=== PATIENT | female | born 1935 | race Two or more races ===

== ENCOUNTER 2025-01-26 17:48 | Inpatient (IN) | payer OTHER, MEDICAID ==
[~2025-01-26] VITALS: Ht 157.5 cm; Wt 65.0 kg
--- NOTE | 2025-01-26 18:05 | ED.PDOC ---
HPI Comments 89-year-old female with a history of AFib, hypothyroid, anemia, hypertension and arthritis brought in by son for evaluation of chest pain. Patient son states he noticed the patient's tongue was blue this morning, so he contacted [facility] hot[facility] and was advised to come to the ER. On my evaluation, patient is gesturing to the right parasternal area to localize the chest pain. She denies fever, cough, shortness of breath, nausea, vomiting, diaphoresis or edema. EKG at triage showed ST-elevation in the lateral leads with reciprocal changes. Code STEMI was activated. Case was discussed with Dr. Rowley, who will be taking the patient to the mill laborer. Chief Complaint: Chest Pain Time Seen by MD: 18:02 Reviewed Notes: Nurses Notes, Medications, Allergies Allergies: Coded Allergies: NO KNOWN ALLERGIES (Unverified , 01/26/25) Information Source: Patient, Emergency Med Personnel Mode of Arrival: EMS Severity: Moderate Timing: Weeks Duration: Since onset Prehospital treatment: None Location: Chest (R) Radiation: No Radiation Onset: At Rest Cardiac Risk Factors: None PE Risk Factors: None History of: None Modifying Factors: Nothing Associated Signs and Symptoms: None Past Medical History PAST MEDICAL HISTORY: AFIB, HTN, Thyroid Past Medical History (Other): Arthritis Surgical History (Other): Noncontributory FREIGHT SORTER History: No Pertinent FREIGHT SORTER History Family History Family History: Unknown Social History Smoker: Non-Smoker Alcohol: Denies ETOH Use Drugs: Denies Drug Use Lives In: Home Constitutional: denies: chills, diaphoresis, fatigue, fever, malaise, sweats, weakness, others EENTM: denies: blurred vision, double vision, ear bleeding, ear discharge, ear drainage, ear pain, ear ringing, eye pain, eye redness, hearing loss, mouth pain, mouth swelling, nasal discharge, nose bleeding, nose congestion, nose pain, photophobia, tearing, throat pain, throat swelling, voice changes, others Respiratory: denies: cough, hemoptysis, orthopnea, SOB at rest, shortness of breath, SOB with excertion, stridor, wheezing, others Cardiovascular: reports: chest pain; denies: dizzy spells, diaphoresis, Dyspnea on exertion, edema, irregular heart beat, left arm pain, lightheadedness, palpitations, PND, syncope, others Gastrointestinal: denies: abdomen distended, abdominal pain, blood streaked bowels, constipated, diarrhea, dysphagia, difficulty swallowing, hematemesis, melena, nausea, poor appetite, poor fluid intake, rectal bleeding, rectal pain, vomiting, others Genitourinary: denies: abnormal vagina bleeding, burning, dyspareunia, dysuria, flank pain, frequency, hematuria, incontinence, pain, , vagina discharge, urgency, others Neurological: denies: dizziness, fainting, headache, left sided numbness, left sided weakness, numbness, paresthesia, pre-existing deficit, right sided numbness, right sided weakness, seizure, speech problems, tingling, tremors, weakness, others Musculoskeletal: denies: back pain, gout, joint pain, joint swelling, muscle pain, muscle stiffness, neck pain, others Integumetry: denies: bruises, change in color, change in hair/nails, dryness, laceration, lesions, lumps, rash, wounds, others Allergic/Immunocompromised: denies: Difficulty Healing, Frequent Infections, Hives, Itching, others Hematologic/Lymphatic: denies: anemia, blood clots, easy bleeding, easy bruising, swollen glands, others Endocrine: denies: excessive hunger, excessive sweating, excessive thirst, excessive urination, flushing, intolerance to cold, intolerance to heat, unexplained weight gain, unexplained weight loss, others Psychiatric: denies: anxiety, bipolar disorder, depression, hopeless, panic disorder, schizophrenia, sleepless, suicidal, others All Other Systems: Reviewed and Negative (Comprehensive systems review obtained and negative except for what is stated in the HPI.) Physical Exam General Appearance: No Apparent Distress HEENT: Other (Pupils and face symmetric. Moist mucous membranes. Tongue appears mildly cyanotic.) Neck: Full Range of Motion, Normal Inspection Respiratory: Lungs Clear, No Accessory Muscle Use, No Respiratory Distress, Normal Breath Sounds Cardiovascular: No Edema, No JVD, Regular Rate/Rhythm Breast Exam: Deferred Gastrointestinal: Non Tender, Soft Genitalia: Deferred Pelvic: Deferred Rectal: Deferred Extremities: Normal inspection, Normal range of motion, Non-tender, No pedal edema Neurologic: Alert (Oriented x4), Other (Ambulatory) Cerebellar Function: NOT DONE Reflexes: NOT DONE Skin: Dry, Normal Color, Warm Lymphatic: NOT DONE EKG EKG : Comments Sinus rhythm, rate 82, normal intervals, normal axis, normal QRS, upsloping ST elevation in leads 1, aVL with T-wave inversion and ST-depression in the inferior leads and V3 through V6 Was a procedure done? Was a procedure done?: No CP Differential Dx Differential Diagnosis: Angina, NE, Pulmonary Embolus, Other (Arrhythmia) Differential Diagnosis: Chest Wall Pain, Esophageal reflux/spasm, Gastritis, Pericarditis X-Ray, Labs, Meds, VS Vital Signs Date Time Temp Pulse Resp B/P (MAP) Pulse Ox O2 Delivery O2 Flow Rate FiO2 01/26/25 18:15 154/80 01/26/25 18:07 Room Air* 0 21 01/26/25 17:57 98.0 75 18 154/68 99 98.0 01/26/25 17:53 82 Lab Test 01/26/25 18:12 Range/Units White Blood Count 6.5 4.4-10.8 10^3/uL Red Blood Count 3.95 L 4.0-5.20 10^6/uL Hemoglobin 12.1 L 12.2-16.2 g/dL Hematocrit 36.1 36.0-46.0 % Mean Corpuscular Volume 91.3 80.0-100.0 fL Mean Corpuscular Hemoglobin 30.6 28.0-32.0 pg Mean Corpuscular Hemoglobin Concent 33.6 32.0-36.0 g/dL Red Cell Distribution Width 15.8 H 11.8-14.3 % Platelet Count 231 140-450 10^3/uL Mean Platelet Volume 7.5 6.9-10.8 fL Neutrophils (%) (Auto) 61.1 37.0-80.0 % Lymphocytes (%) (Auto) 29.0 10.0-50.0 % Monocytes (%) (Auto) 6.9 0.0-12.0 % Eosinophils (%) (Auto) 2.6 0.0-7.0 % Basophils (%) (Auto) 0.4 0.0-2.0 % Neutrophils # (Auto) 4.0 1.6-8.6 10 ^3/uL Lymphocytes # (Auto) 1.9 0.4-5.4 10 ^3/uL Monocytes # (Auto) 0.5 0-1.3 10 ^3/uL Eosinophils # (Auto) 0.2 0-0.8 10 ^3/uL Basophils # (Auto) 0 0-0.2 10 ^3/uL Nucleated Red Blood Cells 0.1 % Prothrombin Time 10.4 9.3-11.8 sec Prothrombin Time INR 0.98 0.9-1.15 Activated Partial Thromboplast Time 25.2 24.5-34.5 SEC Sodium Level 139 136-145 mmol/L Potassium Level 4.2 3.5-5.1 mmol/L Chloride Level 106 98-107 mmol/L Carbon Dioxide Level 25 20-31 mmol/L Anion Gap 8 5-15 Blood Urea Nitrogen 14 9-23 mg/dL Creatinine 0.85 0.550-1.02 mg/dL Glomerular Filtration Rate Calc 66 >90 mL/min BUN/Creatinine Ratio 16.5 10.0-20.0 Serum Glucose 150 H 74-106 mg/dL Hemoglobin A1c 6.3 H <5.7 % A1C Lactic Acid Level 1.6 0.4-2.0 mmol/L Calcium Level 9.2 8.7-10.4 mg/dL Magnesium Level 2.2 1.6-2.6 mg/dL Total Bilirubin 0.6 0.2-1.0 mg/dL Aspartate Amino Transferase (AST) 21 13-40 U/L Alanine Aminotransferase (ALT) 19 7-40 U/L Alkaline Phosphatase 91 46-116 U/L Troponin I High Sensitivity 18 </=34 ng/L B-Type Natriuretic Peptide 54.95 0-100 pg/mL Total Protein 6.8 5.7-8.2 g/dL Albumin 3.9 3.2-4.8 g/dL Vitamin B12 Level 1958 H 211-911 pg/mL Vitamin D 25-Hydroxy 98.3 30.0-100 ng/mL Thyroid Stimulating Hormone (TSH) 0.22 L 0.55-4.78 uIU/mL Current Medications Medications (Trade) Dose Ordered Sig/Monica Route Start Time Stop Time Status Last Admin Aspirin 325 mg ONCE ONCE PO 01/26/25 18:15 01/26/25 18:16 DC 01/26/25 18:15 Nitroglycerin (Nitro-Bid) 1 pkg ONCE ONCE TD 01/26/25 18:15 01/26/25 18:16 DC 01/26/25 18:15 PROCEDURE(s): CXRP - CHEST PORTABLE REASON: cp ORDER NUMBER(s): [id number], ACCESSION NUMBER(s): [id number] CHEST RADIOGRAPH Indication: cp Technique: XY CHEST PORTABLE COMPARISON: None FINDINGS: The cardiac silhouette is enlarged. The lungs demonstrate bilateral patchy airspace opacities. The pulmonary vasculature is prominent. Moderate left and small right pleural effusions. Aortic atherosclerotic disease. There is no pneumothorax. IMPRESSION: As above X-Ray, Labs, Meds, VS Comment 89-year-old female with a history of hypertension, AFib, thyroid disease and arthritis brought in by son for evaluation of blue tongue discoloration and right-sided chest pain Vitals remarkable for BP 154/68 Exam remarkable for mildly cyanotic appearing tongue Rhythm strip independently interpreted by me: Sinus rhythm, rate eighty-two, no ectopy. Chest x-ray The cardiac silhouette is enlarged. The lungs demonstrate bilateral patchy airspace opacities. The pulmonary vasculature is prominent. Moderate left and small right pleural effusions. Aortic atherosclerotic disease. There is no pneumothorax. CBC, CMP and troponins unremarkable Case discussed with Dr. Rowley, who agreed EKG findings are consistent with STEMI. Code STEMI was activated. Patient treated with the following in the ED: Aspirin 325 mg p.o., nitro bid 1/2 inch to chest wall On re-evaluation, patient is resting comfortably with stable vitals. Plan is to admit the patient for ongoing cardiology evaluation. Case discussed with Roberto JIMENEZ RP who provided authorization for us to admit the patient here. Authorization [id number] Time of 1ST Reevaluation: 18:32 Reevaluation 1ST: Unchanged Patient Education/Counseling: Diagnosis, Treatment Family Education/Counseling: No Family Present SEPSIS Sepsis Screen Physician Orders Chest Portable (01/26/25 18:07) Heplock Iv (01/26/25 18:07) Photographer Scientific (01/26/25 18:07) Blood Pressure (01/26/25 18:07) Oxygen (01/26/25 18:07) Electrocardigram (01/26/25 18:07) Electrocardigram (01/26/25 19:07) Electrocardigram (01/26/25 21:07) Electrocardigram (01/26/25 18:05) Oxygen Per Hour (01/26/25 18:05) Photographer Scientific (01/26/25 18:05) Pulse Oximeter Check (01/26/25 18:05) Heplock Iv (01/26/25 18:05) Electrocardigram (01/26/25 19:05) Electrocardigram (01/26/25 21:05) Troponin-I Hs (01/26/25 21:05) Allergies (01/26/25 18:28) Complete Blood Count (01/27/25 04:00) Comprehensive Metabolic Panel (01/27/25 04:00) Npo (Nothing By Mouth) Diet (01/26/25 Dinner) Condition: Unstable (01/26/25 18:28) Acetaminophen Tablet (Tylenol Tablet) (01/26/25 18:30) Cl Left Heart Cath (01/26/25 18:29) Vital Signs Date Time Temp Pulse Resp B/P (MAP) Pulse Ox O2 Delivery O2 Flow Rate FiO2 01/26/25 18:15 154/80 01/26/25 18:07 Room Air* 0 21 01/26/25 17:57 98.0 75 18 154/68 99 98.0 01/26/25 17:53 82 Laboratory Tests Test 01/26/25 18:12 Lactic Acid Level 1.6 mmol/L (0.4-2.0) White Blood Count 6.5 10^3/uL (4.4-10.8) Medications Medications Dose Ordered Sig/Monica Route Start Time Stop Time Status Last Admin Dose Admin Aspirin 325 mg ONCE ONCE PO 01/26/25 18:15 01/26/25 18:16 DC 01/26/25 18:15 Iodixanol 64,000 mg STK-MED ONCE IV 01/26/25 18:21 01/26/25 18:18 DC 01/26/25 18:21 Nitroglycerin 1 pkg ONCE ONCE TD 01/26/25 18:15 01/26/25 18:16 DC 01/26/25 18:15 Departure 1 Departure Time of Disposition: 18:18 Impression: Primary Impression: ST elevation NE (STEMI) Disposition: 09 ADMITTED INPATIENT Admit to: [facility] Condition: Guarded Critical Care Note Critical Care Time?: Yes (35 min-critical care time only) Critical care comment: Critical care time including multiple bedside re-evaluations, review of lab and imaging studies, and discussion of the case with the admitting and consulting providers. Patient is high risk for hemodynamic decompensation. Stability Stability form required: No Heart Score Heart Score: Heart Score Response (Comments) Value History Slightly Suspicious [address]-Deviation 2 Age >65 2 Risk Factors 1 or 2 risk factors 1 Troponin Normal limit 0 Total 5 I personally scribed for AILYN LANGFORD MD ([email or web address]) on 01/26/25 at 18:05. Electronically submitted by Reena Nam ([email or web address]). I personally scribed for AILYN LANGFORD MD ([email or web address]) on 01/26/25 at 18:06. Electronically submitted by Reena Nam ([email or web address]). I personally scribed for AILYN LANGFORD MD ([email or web address]) on 01/26/25 at 19:1 3. Electronically submitted by Reena Nam ([email or web address]). AILYN LANGFORD MD Jan 26, 2025 18:05
[2025-01-26] MEDS: NITROGLYCERIN 2% OINT 1GM PKG TD ONE (18:15)
[2025-01-26] MEDS: GELATIN 1 SPONGE SIZE 100 TOP ONE (18:20)
[2025-01-26] MEDS: IODIXANOL 320MG/ML 100ML BTL IV ONE (18:21)
[2025-01-26] MEDS ORDERED: ONDANSETRON HCL 4 MG/2 ML VIAL IV PRN (18:30)
[2025-01-26] MEDS ORDERED: NITROGLYCERIN 0.4 MG SL TAB SL PRN ×2 (18:30→19:45)
[2025-01-26] MEDS ORDERED: ACETAMINOPHEN 325 MG TAB PO PRN (18:30)
[2025-01-26] MEDS ORDERED: MORPHINE SULFATE INJ 2 MG/ml SYRG IV PRN ×2 (18:30→19:45)
[2025-01-26 18:35] LABS: Hematocrit 36.1 % (36.0-46.0); Hemoglobin 12.1 g/dL (12.2-16.2); Mean Corpuscular Hemoglobin 30.6 pg (28.0-32.0); Mean Corpuscular Volume 91.3 fL (80.0-100.0); Nucleated Red Blood Cells % 0.1 %
[2025-01-26] MEDS: ANGIOMAX 250 MG VIAL IV ONE (18:37)
[2025-01-26] MEDS: fentaNYL CITRATE 100 MCG/2 ML VL ONE ×2 (18:37→19:37)
[2025-01-26] MEDS: SODIUM CHL 0.9% 50 ML ONE (18:38)
[2025-01-26] MEDS: LIDOCAINE 2%HCL (LOCAL ANESTH.) INJ 20ML MDV ONE (18:38)
[2025-01-26] MEDS: MIDAZOLAM HCL 2MG/2ML 2ml VIAL (1mg/ml) ONE (18:38)
--- NOTE | 2025-01-26 18:42 | DVH ---
CHEST RADIOGRAPH Indication: cp Technique: XY CHEST PORTABLE COMPARISON: None FINDINGS: The cardiac silhouette is enlarged. The lungs demonstrate bilateral patchy airspace opacities. The pu lmonary vasculature is prominent. Moderate left and small right pleural effusions. Aortic atheroscle rotic disease. There is no pneumothorax. IMPRESSION: As above
[2025-01-26 18:50] LABS: INR 0.98 (0.9-1.15); Partial Thromboplastin Time 25.2 SEC (24.5-34.5); Prothrombin Time 10.4 sec (9.3-11.8)
[2025-01-26 18:51] LABS: Alanine Aminotransferase 19 U/L (7-40); Albumin 3.9 g/dL (3.2-4.8); Alkaline Phosphatase 91 U/L (46-116); Anion Gap 8 (5-15); BUN/Creatinine Ratio 16.5 (10.0-20.0); Blood Urea Nitrogen 14 mg/dL (9-23); Calcium 9.2 mg/dL (8.7-10.4); Carbon Dioxide 25 mmol/L (20-31); Chloride 106 mmol/L (98-107); Magnesium 2.2 mg/dL (1.6-2.6); Potassium 4.2 mmol/L (3.5-5.1); Sodium 139 mmol/L (136-145); Total Protein 6.8 g/dL (5.7-8.2)
[2025-01-26 18:52] LABS: Bilirubin, Total 0.6 mg/dL (0.2-1.0)
[2025-01-26 19:09] LABS: Glucose 150 mg/dL (74-106)
--- NOTE | 2025-01-26 19:11 | DVHHPRES ---
History of Present Illness Resident Creating Document: HESHAM GARCIA RESIDENT History of Present Illness Zuleyka Mcmahan is a 89 years old Nepali-speaking female with a PMH of HTN, hypothyroidism, rheumatoid arthritis presented to the ED accompanied by son for chest pain which started on the day of admission. History obtained from the son, per him patient has been having recently multiple episodes of syncope and planning to visit psychiatric lpn for the cause but today patient has been having mild chest pain substernal and right-sided and no associated features. The pain is more noticeable when lying down and standing up additionally patient's son noticed that the patient's tongue appeared concerning, prompting her to seek medical attention. On my assessment denies shortness of breaths, cough, nausea, vomiting, diaphoresis and other associated symptoms. On arrival to ED EKG showed ST-elevation in lateral leads with reciprocal changes, code STEMI activated and taking her to laboratory chemical assistant with Dr. Rolwey PMH: As above PSH: Noncontributory Family history: Noncontributory Social history: Lives with the family. Denies smoking, alcohol and other drug abuse Allergies: No known allergies Home medications: Levothyroxine, faintness, prednisolone, amlodipine, lisinopril, metoprolol, benzonatate, alendronate Patient seen and examined at the bedside all the events reviewed, code STEMI activated took her to the laboratory chemical assistant. Patient is currently experiencing mild ch est pain but no other symptoms. NST monitoring Review of Systems Allergies: Coded Allergies: NO KNOWN ALLERGIES (Unverified , 01/26/25) Medications Current Medications Medications Dose Ordered Sig/Monica Route Start Time Stop Time Status Last Admin Dose Admin Ondansetron HCl 4 mg Q4HP PRN IV 01/26/25 18:30 Acetaminophen 650 mg Q6HP PRN PO 01/26/25 18:30 Nitroglycerin 0.4 mg Q5MINP PRN SL 01/26/25 18:30 Morphine Sulfate 2 mg Q30M PRN IV 01/26/25 18:30 Pantoprazole Sodium 40 mg DAILY IV 01/27/25 10:00 UNV Metoprolol Succinate 25 mg DAILY PO 01/27/25 10:00 UNV Lisinopril 40 mg DAILY PO 01/27/25 10:00 UNV Levothyroxine Sodium 50 mcg QAM@0600 PO 01/27/25 06:00 UNV Prednisone 5 mg DAILY PO 01/27/25 10:00 UNV Hydralazine HCl 10 mg Q6HP PRN IV 01/26/25 19:15 UNV Exam Vital Signs Vital Signs Date Time Temp Pulse Resp B/P (MAP) Pulse Ox O2 Delivery O2 Flow Rate FiO2 01/26/25 18:35 98.1 80 16 154/80 (104) 98 98.1 01/26/25 18:07 Room Air* 0 21 Exam Pt is lying on bed General Appearance: Alert, Oriented X3, Cooperative, Not in acute distress HEENT: Atraumatic, Mucous membranes moist/pink Respiratory: Clear to auscultation, Normal air movement, No added sounds Cardiovascular: Regular rate, Normal S1, Normal S2, No murmurs Abdominal: Active bowel sounds, Soft, no distention, no tenderness Extremities: No edema, Normal pulses, No tenderness/swelling Skin: No Significant rash, except past surgical scars Neuro: Normal speech, sensorimotor deficits none Psych/Mental Status: Mental status NL, Mood NL Nurse was there as rap artist during examination Labs/Xrays Labs Test 01/26/25 18:12 Range/Units White Blood Count 6.5 4.4-10.8 10^3/uL Red Blood Count 3.95 L 4.0-5.20 10^6/uL Hemoglobin 12.1 L 12.2-16.2 g/dL Hematocrit 36.1 36.0-46.0 % Mean Corpuscular Volume 91.3 80.0-100.0 fL Mean Corpuscular Hemoglobin 30.6 28.0-32.0 pg Mean Corpuscular Hemoglobin Concent 33.6 32.0-36.0 g/dL Red Cell Distribution Width 15.8 H 11.8-14.3 % Platelet Count 231 140-450 10^3/uL Mean Platelet Volume 7.5 6.9-10.8 fL Neutrophils (%) (Auto) 61.1 37.0-80.0 % Lymphocytes (%) (Auto) 29.0 10.0-50.0 % Monocytes (%) (Auto) 6.9 0.0-12.0 % Eosinophils (%) (Auto) 2.6 0.0-7.0 % Basophils (%) (Auto) 0.4 0.0-2.0 % Neutrophils # (Auto) 4.0 1.6-8.6 10 ^3/uL Lymphocytes # (Auto) 1.9 0.4-5.4 10 ^3/uL Monocytes # (Auto) 0.5 0-1.3 10 ^3/uL Eosinophils # (Auto) 0.2 0-0.8 10 ^3/uL Basophils # (Auto) 0 0-0.2 10 ^3/uL Nucleated Red Blood Cells 0.1 % Prothrombin Time 10.4 9.3-11.8 sec Prothrombin Time INR 0.98 0.9-1.15 Activated Partial Thromboplast Time 25.2 24.5-34.5 SEC Sodium Level 139 136-145 mmol/L Potassium Level 4.2 3.5-5.1 mmol/L Chloride Level 106 98-107 mmol/L Carbon Dioxide Level 25 20-31 mmol/L Anion Gap 8 5-15 Blood Urea Nitrogen 14 9-23 mg/dL Creatinine 0.85 0.550-1.02 mg/dL Glomerular Filtration Rate Calc 66 >90 mL/min BUN/Creatinine Ratio 16.5 10.0-20.0 Serum Glucose 150 H 74-106 mg/dL Calcium Level 9.2 8.7-10.4 mg/dL Magnesium Level 2.2 1.6-2.6 mg/dL Total Bilirubin 0.6 0.2-1.0 mg/dL Aspartate Amino Transferase (AST) 21 13-40 U/L Alanine Aminotransferase (ALT) 19 7-40 U/L Alkaline Phosphatase 91 46-116 U/L Troponin I High Sensitivity 18 </=34 ng/L B-Type Natriuretic Peptide 54.95 0-100 pg/mL Total Protein 6.8 5.7-8.2 g/dL Albumin 3.9 3.2-4.8 g/dL SEPSIS Sepsis Screen Date sepsis recognized/suspect: Jan 26, 2025 Time Sepsis recognized/suspect: 1800 Recent Procedure: No On Antibiotic Therapy: No Respiratory Rate >20: No Heart Rate >90: No Temp<36 C (96.8 F) or >38.3 C: No SBP <90 or MAP <65 mmHG: No New Acute Mental Status Change: No Is the patient on CPAP, BIPAP,: No Physician Orders Chest Portable (01/26/25 18:07) Heplock Iv (01/26/25 18:07) Tool Inspector (01/26/25 18:07) Blood Pressure (01/26/25 18:07) Oxygen (01/26/25 18:07) Electrocardigram (01/26/25 18:07) Electrocardigram (01/26/25 19:07) Electrocardigram (01/26/25 21:07) Electrocardigram (01/26/25 18:05) Oxygen Per Hour (01/26/25 18:05) Tool Inspector (01/26/25 18:05) Pulse Oximeter Check (01/26/25 18:05) Heplock Iv (01/26/25 18:05) Electrocardigram (01/26/25 19:05) Electrocardigram (01/26/25 21:05) Troponin-I Hs (01/26/25 19:05) Troponin-I Hs (01/26/25 21:05) Type And Screen (01/26/25 18:05) Allergies (01/26/25 18:28) Ondansetron Hcl (Zofran) (01/26/25 18:30) Complete Blood Count (01/27/25 04:00) Comprehensive Metabolic Panel (01/27/25 04:00) Npo (Nothing By Mouth) Diet (01/26/25 Dinner) Condition: Unstable (01/26/25 18:28) Acetaminophen Tablet (Tylenol Tablet) (01/26/25 18:30) Cl Left Heart Cath (01/26/25 18:29) Admit (01/26/25 18:29) Code Status (01/26/25 18:29) Condition: Fair (01/26/25 18:29) Nitroglycerin Sublingual (Ntrostat Subli (01/26/25 18:30) Morphine Sulfate Injection (01/26/25 18:30) Oxygen By Nasal Cannula (01/26/25 18:29) Stat Ekg For Chest Pain (01/26/25 18:29) Notify Md Of Changes From Base (01/26/25 18:29) Estate Attorney For 24 Hours (01/26/25 18:29) Emergency Dysrhythmia Protocol (01/26/25 18:29) Rhythm Strips Once Every Shift (01/26/25 18:29) Drug Screen (01/26/25 19:02) Hemoglobin A1c (01/26/25 19:02) Lactic Acid W/ Reflex Order (01/26/25 19:02) Lipid Panel (01/26/25 19:02) Magnesium (01/26/25 19:02) Thyroid Stimulating Hormone (01/26/25 19:02) Urinalysis (01/26/25 19:02) Vitamin B12 (01/26/25 19:02) Vitamin D, 25-Hydroxy (01/26/25 19:02) Pantoprazole (Protonix) (01/27/25 10:00) Metoprolol Xl Succinate (Toprol Xl) (01/27/25 10:00) Lisinopril Tablet (Zestril Tablet) (01/27/25 10:00) Levothyroxine Tablet (Synthroid Tablet) (01/27/25 06:00) Prednisolone (01/27/25 10:00) Hydralazine Injection (Apresoline Inject (01/26/25 19:15) Vital Signs Date Time Temp Pulse Resp B/P (MAP) Pulse Ox O2 Delivery O2 Flow Rate FiO2 01/26/25 18:35 98.1 80 16 154/80 (104) 98 98.1 01/26/25 18:15 154/80 01/26/25 18:07 Room Air* 0 21 01/26/25 17:57 98.0 75 18 154/68 99 98.0 01/26/25 17:53 82 Laboratory Tests Test 01/26/25 18:12 Lactic Acid Level Pending White Blood Count 6.5 10^3/uL (4.4-10.8) Medications Medications Dose Ordered Sig/Monica Route Start Time Stop Time Status Last Admin Dose Admin Aspirin 325 mg ONCE ONCE PO 01/26/25 18:15 01/26/25 18:16 DC 01/26/25 18:15 325 MG Nitroglycerin 1 pkg ONCE ONCE TD 01/26/25 18:15 01/26/25 18:16 DC 01/26/25 18:15 1 PKG Assessment/Plan Assessment/Plan # ACS # ST-elevation ND - Telemetry - EKG showed ST-elevation in lateral leads with reciprocal changes - Troponins, pending - Activated code STEMI - Consulted cardiology - Chest pain protocol with nitroglycerin, morphine - given loading dose of aspirin 325 mg # r/o Covid 19/flu - pending rapid test # HTN: Resumed home medications lisinopril 40 mg, metoprolol succinate ER 25 mg # Hypothyroidism: Resume levothyroxine 50 mcg # Osteoporosis: Patient is on alendronate sodium 70 mg we will resume once patient is stabilized # Rheumatoid arthritis: Patient is on prednisolone 5 mg GI PPX: Protonix VTE ppx: scd s for now Diet: NPO for now, resume cardiac diet after the catheterization Goals of care addressed with the patient's son for more than 27 minutes: Full code status Case discussed with Dr. Mclean ,patient and nurse Plan discussed with: Patient, Son My Orders Orders - HESHAM GARCIA Procedure Category Date Status Time Drug Screen LAB 01/26/25 Logged 19:02 Hemoglobin A1c LAB 01/26/25 In Process 19:02 Lactic Acid W/ Reflex LAB 01/26/25 In Process Order 19:02 Lipid Panel LAB 01/26/25 Logged 19:02 Magnesium LAB 01/26/25 Logged 19:02 Thyroid Stimulating LAB 01/26/25 In Process Hormone 19:02 Urinalysis LAB 01/26/25 Logged 19:02 Vitamin B12 LAB 01/26/25 In Process 19:02 Vitamin D, 25-Hydroxy LAB 01/26/25 In Process 19:02 Pantoprazole PHA 01/27/25 Logged (Protonix) 10:00 Metoprolol Xl PHA 01/27/25 Logged Succinate (Toprol Xl) 10:00 Lisinopril Tablet PHA 01/27/25 Logged (Zestril Tablet) 10:00 Levothyroxine Tablet PHA 01/27/25 Logged (Synthroid Tablet) 06:00 Prednisolone PHA 01/27/25 Logged 10:00 Hydralazine Injection PHA 01/26/25 Transmitted (Apresoline Inject 19:15 Date of Service: Jan 26, 2025 Billing Provider: EVELINE ORTEZ MD Common Visit Codes: [id number] INP/OBS CARE (HIGH) Secondary Visit Codes: [id number] CARE PLAN 30 MINUTES HESHAM GARCIA Jan 26, 2025 19:11 EVELINE ORTEZ MD Feb 07, 2025 18:33
[2025-01-26] MEDS ORDERED: hydrALAZINE HCL 20 MG/ML VL IV PRN (19:15)
[2025-01-26] MEDS ORDERED: MORPHINE SULFATE 4 MG/ML SYR/VIAL IV PRN (19:45)
[2025-01-26] MEDS ORDERED: ACETAMINOPHEN 500 MG TAB or CAP PO PRN (19:45)
[2025-01-26] MEDS ORDERED: HYDROcodone-ACET 5/325MG TAB PO PRN (19:45)
[2025-01-26] MEDS: MILK OF MAGNESIA 30ML SUSP PO ONE (19:45)
[2025-01-26 19:50] VITALS: BP 140/71; PULSE 64; RESP 16; TEMP 97.9; O2SAT 96
[2025-01-26 20:05] VITALS: BP 139/71; PULSE 67; RESP 16; O2SAT 97
[2025-01-26 20:20] VITALS: BP 140/62; PULSE 59; RESP 18; O2SAT 98
[2025-01-26 20:35] VITALS: BP 138/68; PULSE 64; RESP 16; O2SAT 99
[2025-01-26 20:36] LABS: Triglycerides 94.0 mg/dL (< 150)
[2025-01-26 20:37] LABS: Magnesium 2.0 mg/dL (1.6-2.6)
[2025-01-26 20:38] LABS: Cholesterol 167.0 mg/dL (< 200); HDL Cholesterol 38.0 mg/dL (40-59)
[2025-01-26 21:00] VITALS: BP 146/69; PULSE 59; RESP 17; TEMP 97.8; O2SAT 100
--- NOTE | 2025-01-26 21:52 | DVHINCON2 ---
Date of service: Jan 26, 2025 Referring Physician Marcelo Reason for Consultation STEMI History of Present Illness This is a 89 year old female English-speaking female with a PMH of HTN, hypothyroidism, rheumatoid arthritis who presented to the ED accompanied by son due to c/o chest pain which started today. History obtained from the son, per him patient has been having recently multiple episodes of syncope and planning to visit data processing control clerk for the cause but today patient has been having mild chest pain substernal and right-sided and no associated features. The pain is more noticeable when lying down and standing up additionally patient's son noticed that the patient's tongue appeared concerning, prompting her to seek medical attention. On arrival to ED EKG showed ST-elevation in lateral leads with reciprocal changes. Code STEMI activated. I evaluated the patient at bedside within a few minutes and tool patient to microbiological lab technician. Troponin is negative. Chest x-ray shows bilateral patchy airspace opacities, moderate left and small right pleural effusions. Patient was admitted to the hospital. I am asked to consult on this patient. Allergies: Coded Allergies: NO KNOWN ALLERGIES (Unverified , 01/26/25) Current Medications Current Medications Medications (Trade) Dose Ordered Sig/Monica Route PRN Reason Start Time Stop Time Status Last Admin Ondansetron HCl (Zofran) 4 mg Q4HP PRN IV NAUSEA / VOMITING 01/26/25 18:30 Cancel Acetaminophen (Tylenol Tablet) 650 mg Q6HP PRN PO PAIN SCALE 1-3 OR TEMP>100.4 01/26/25 18:30 Nitroglycerin (Ntrostat Sublingual) 0.4 mg Q5MINP PRN SL FOR CHEST PAIN 01/26/25 18:30 01/26/25 20:00 DC Morphine Sulfate 2 mg Q30M PRN IV FOR CHEST PAIN 01/26/25 18:30 01/26/25 20:01 DC Pantoprazole Sodium (Protonix) 40 mg DAILY IV 01/27/25 10:00 Metoprolol Succinate (Toprol Xl) 25 mg DAILY PO 01/27/25 10:00 Lisinopril (Zestril Tablet) 40 mg DAILY PO 01/27/25 10:00 Levothyroxine Sodium (Synthroid Tablet) 50 mcg QAM@0600 PO 01/27/25 06:00 Prednisone 5 mg DAILY PO 01/27/25 10:00 Hydralazine HCl (Apresoline Injection) 10 mg Q6HP PRN IV SBP>160 01/26/25 19:15 Acetaminophen/ Hydrocodone Bitart (Cascadia 5/325MG Tab) 1 tab Q4HP PRN PO MODERATE PAIN (4-6 PAIN SCALE) 01/26/25 19:45 Ondansetron HCl (Zofran) 4 mg Q4HP PRN IV NAUSEA / VOMITING 01/26/25 19:45 Acetaminophen (Tylenol Tablet Or Capsule) 500 mg Q6HP PRN PO MILD PAIN (1-3 PAIN SCALE) 01/26/25 19:45 UNV Morphine Sulfate 1 mg Q4HP PRN IV SEVERE PAIN (7-10 PAIN SCALE) 01/26/25 19:45 Nitroglycerin (Ntrostat Sublingual) 0.4 mg Q5MINP PRN SL FOR CHEST PAIN 01/26/25 19:45 Morphine Sulfate 2 mg Q30M PRN IV FOR CHEST PAIN 01/26/25 19:45 Review of Systems Constitutional: denies: chills, diaphoresis, fatigue, fever, malaise, sweats, weakness, others EENTM: denies: blurred vision, double vision, ear bleeding, ear discharge, ear drainage, ear pain, ear ringing, eye pain, eye redness, hearing loss, mouth pain, mouth swelling, nasal discharge, nose bleeding, nose congestion, nose pain, photophobia, tearing, throat pain, throat swelling, voice changes, others Respiratory: denies: cough, hemoptysis, orthopnea, SOB at rest, shortness of breath, SOB with excertion, stridor, wheezing, others Cardiovascular: reports: chest pain; denies: dizzy spells, diaphoresis, Dyspnea on exertion, edema, irregular heart beat, left arm pain, lightheadedness, palpitations, PND, syncope, others Gastrointestinal: denies: abdomen distended, abdominal pain, blood streaked bowels, constipated, diarrhea, dysphagia, difficulty swallowing, hematemesis, melena, nausea, poor appetite, poor fluid intake, rectal bleeding, rectal pain, vomiting, others Genitourinary: denies: abnormal vagina bleeding, burning, dyspareunia, dysuria, flank pain, frequency, hematuria, incontinence, pain, , vagina discharge , urgency, others Neurological: denies: dizziness, fainting, headache, left sided numbness, left sided weakness, numbness, paresthesia, pre-existing deficit, right sided numbness, right sided weakness, seizure, speech problems, tingling, tremors, weakness, others Musculoskeletal: denies: back pain, gout, joint pain, joint swelling, muscle pain, muscle stiffness, neck pain, others Integumetry: denies: bruises, change in color, change in hair/nails, dryness, laceration, lesions, lumps, rash, wounds, others Allergic/Immunocompromised: denies: Difficulty Healing, Frequent Infections, Hives, Itching, others Hematologic/Lymphatic: denies: anemia, blood clots, easy bleeding, easy bruising, swollen glands, others Endocrine: denies: excessive hunger, excessive sweating, excessive thirst, excessive urination, flushing, intolerance to cold, intolerance to heat, unexplained weight gain, unexplained weight loss, others Psychiatric: denies: anxiety, bipolar disorder, depression, hopeless, panic di sorder, schizophrenia, sleepless, suicidal, others All Other Systems: Reviewed and Negative (Comprehensive systems review obtained and negative except for what is stated in the HPI.) Vital Signs Vital Signs Date Time Temp Pulse Resp B/P (MAP) Pulse Ox O2 Delivery O2 Flow Rate FiO2 01/26/25 21:00 97.8 59 17 146/69 (94) 100 97.8 01/26/25 18:07 Room Air* 0 21 Physical Exam GENERAL: Alert and oriented x 3. No acute distress. EYES: PERRL, EOMI. Anicteric. HENT: Moist mucous membranes. LUNGS: Clear to auscultation bilaterally. CARDIOVASCULAR: Regular rate and rhythm. ABDOMEN: Soft, non-tender and non-distended. EXTREMITIES: No edema. NEUROLOGIC: No focal neurological deficits. SKIN: Warm, dry. Labs/Diagnostic Data Labs Test 01/26/25 20:00 01/26/25 18:12 Range/Units Magnesium Level 2.0 1.6-2.6 mg/dL Troponin I High Sensitivity 22 </=34 ng/L Triglycerides Level 94 < 150 mg/dL Cholesterol Level 167 < 200 mg/dL LDL Cholesterol 118 H < 100 mg/dL HDL Cholesterol 38 L 40-59 mg/dL White Blood Count 6.5 4.4-10.8 10^3/uL Red Blood Count 3.95 L 4.0-5.20 10^6/uL Hemoglobin 12.1 L 12.2-16.2 g/dL Hematocrit 36.1 36.0-46.0 % Mean Corpuscular Volume 91.3 80.0-100.0 fL Mean Corpuscular Hemoglobin 30.6 28.0-32.0 pg Mean Corpuscular Hemoglobin Concent 33.6 32.0-36.0 g/dL Red Cell Distribution Width 15.8 H 11.8-14.3 % Platelet Count 231 140-450 10^3/uL Mean Platelet Volume 7.5 6.9-10.8 fL Neutrophils (%) (Auto) 61.1 37.0-80.0 % Lymphocytes (%) (Auto) 29.0 10.0-50.0 % Monocytes (%) (Auto) 6.9 0.0-12.0 % Eosinophils (%) (Auto) 2.6 0.0-7.0 % Basophils (%) (Auto) 0.4 0.0-2.0 % Neutrophils # (Auto) 4.0 1.6-8.6 10 ^3/uL Lymphocytes # (Auto) 1.9 0.4-5.4 10 ^3/uL Monocytes # (Auto) 0.5 0-1.3 10 ^3/uL Eosinophils # (Auto) 0.2 0-0.8 10 ^3/uL Basophils # (Auto) 0 0-0.2 10 ^3/uL Nucleated Red Blood Cells 0.1 % Prothrombin Time 10.4 9.3-11.8 sec Prothrombin Time INR 0.98 0.9-1.15 Activated Partial Thromboplast Time 25.2 24.5-34.5 SEC Sodium Level 139 136-145 mmol/L Potassium Level 4.2 3.5-5.1 mmol/L Chloride Level 106 98-107 mmol/L Carbon Dioxide Level 25 20-31 mmol/L Anion Gap 8 5-15 Blood Urea Nitrogen 14 9-23 mg/dL Creatinine 0.85 0.550-1.02 mg/dL Glomerular Filtration Rate Calc 66 >90 mL/min BUN/Creatinine Ratio 16.5 10.0-20.0 Serum Glucose 150 H 74-106 mg/dL Hemoglobin A1c 6.3 H <5.7 % A1C Lactic Acid Level 1.6 0.4-2.0 mmol/L Calcium Level 9.2 8.7-10.4 mg/dL Total Bilirubin 0.6 0.2-1.0 mg/dL Aspartate Amino Transferase (AST) 21 13-40 U/L Alanine Aminotransferase (ALT) 19 7-40 U/L Alkaline Phosphatase 91 46-116 U/L B-Type Natriuretic Peptide 54.95 0-100 pg/mL Total Protein 6.8 5.7-8.2 g/dL Albumin 3.9 3.2-4.8 g/dL Vitamin B12 Level 1958 H 211-911 pg/mL Vitamin D 25-Hydroxy 98.3 30.0-100 ng/mL Thyroid Stimulating Hormone (TSH) 0.22 L 0.55-4.78 uIU/mL Assessment STEMI. ACS. HTN. Hypothyroidism. Osteoporosis. Rheumatoid arthritis. Plan/Recommendation I agree with your ongoing assessment and care of plan. Telemetry reviewed. Cardiac cath, Risks and benefits discussed with the patient. Echocardiogram. CTA chest. Trend troponin. Morphine and [place]ad[place] for pain management. Nitro SL. IV Hydralazine for SBP > 160. Lisinopril. Metoprolol. Additional plan as per the hospital course. A total of 45 minutes was spent reviewing the patient record, examining the patient, making a diagnostic and therapeutic plan, discussing this plan with medical personnel, following up on diagnostic studies and following the patient for clinical stability excluding any and all procedures. At least 50% of this time was spent in direct, [id number] contact. Plan discussed with: Patient TONJA LUIS MD Jan 26, 2025 21:52
[2025-01-26 22:42] VITALS: BP 146/69; PULSE 59; RESP 18; TEMP 97.8; O2SAT 100
[2025-01-27] VITALS (8 sets, daily range): BP systolic 103–136; BP diastolic 45–73; PULSE 63–77; RESP 16–18; TEMP 98–98.9; O2SAT 98–100
[2025-01-27 02:04] LABS: Hematocrit 30.5 % (36.0-46.0); Hemoglobin 10.5 g/dL (12.2-16.2); Mean Corpuscular Hemoglobin 31.2 pg (28.0-32.0); Mean Corpuscular Volume 91.0 fL (80.0-100.0); Nucleated Red Blood Cells % 0.1 %
[2025-01-27] MEDS: LEVOTHYROXINE SODIUM 50 MCG TAB PO SCH (02:06)
[2025-01-27 02:26] LABS: Alanine Aminotransferase 15 U/L (7-40); Alkaline Phosphatase 78 U/L (46-116); Anion Gap 7 (5-15); BUN/Creatinine Ratio 22.7 (10.0-20.0); Blood Urea Nitrogen 15 mg/dL (9-23); Carbon Dioxide 25 mmol/L (20-31); Glucose 92 mg/dL (74-106); Potassium 3.9 mmol/L (3.5-5.1); Sodium 140 mmol/L (136-145); Total Protein 5.9 g/dL (5.7-8.2)
[2025-01-27 02:27] LABS: Albumin 3.4 g/dL (3.2-4.8)
[2025-01-27 02:28] LABS: Bilirubin, Total 0.6 mg/dL (0.2-1.0)
[2025-01-27 02:29] LABS: Calcium 8.5 mg/dL (8.7-10.4); Chloride 108 mmol/L (98-107)
[2025-01-27] MEDS ORDERED: LISI40TA16 PO (09:43)
[2025-01-27] MEDS ORDERED: BENZ100C97 PO (09:43)
[2025-01-27] MEDS ORDERED: LEVO50TA7 PO (09:43)
[2025-01-27] MEDS ORDERED: AMLO1TAB22 PO (09:43)
[2025-01-27] MEDS ORDERED: PRE1T PO (09:43)
[2025-01-27] MEDS ORDERED: FERR325T20 PO (09:43)
[2025-01-27] MEDS ORDERED: METO25TA93 PO (09:43)
[2025-01-27] MEDS ORDERED: DABI110C2 PO (09:43)
[2025-01-27] MEDS ORDERED: prednisoLONE 15 MG/5 ML ORAL UD PO SCH (10:00)
[2025-01-27] MEDS ORDERED: METH3INJ SC (10:08)
[2025-01-27] MEDS ORDERED: ALEN70TA74 PO (10:08)
[2025-01-27] MEDS: PANTOPRAZOLE 40 MG/10 ML VIAL INJ IV SCH (10:10)
[2025-01-27] MEDS: LISINOPRIL 20 MG TAB PO SCH (10:10)
[2025-01-27] MEDS: METOPROLOL SUCCINATE XL 50 MG TAB PO SCH (10:11)
[2025-01-27 12:32] LABS: Free T4 (Free Thyroxine) 1.68 ng/dL (0.89-1.76)
[2025-01-27] MEDS: prednisoLONE 15 MG/5 ML ORAL UD PO SCH (13:34)
--- NOTE | 2025-01-27 13:47 | DVH ---
CTA Chest with intravenous contrast INDICATION: CHEST PAIN, NEGATIVE [facility] COMPARISON: None TECHNIQUE: Multidetector spiral CTA of the chest was performed of the chest with intravenous contrast . PULMONARY ANGIOGRAPHY PROTOCOL was utilized using a bolus-tracking technique centered on the main p ulmonary artery. Axial, coronal and sagittal multiplanar and MIP reformats were performed. Radiation Dose : 1. Chest: CTDI volume is 20.72 mGy. Dose-length product is 2.01 mGy*cm The dose indicators for CT are the volume Computed Tomography (CT) Dose Index (CTDIvol) and the Dose Length Product (DLP), and are measured in units of mGy and mGy-cm, respectively. These indicators are not patient dose, but values generated from the CT scanner acquisition factors. The report includes radiation exposure data for exposures received during this examination. Findings: Pulmonary artery: No pulmonary embolism Lower neck: Normal thyroid. Lungs: Fibrotic changes of the bilateral lung bases. Heart/Vascular Structures: Cardiomegaly. Coronary artery calcifications. Vascular calcifications of t he aorta. Lymph Nodes: No adenopathy Pleura: No pleural effusion or significant pneumothorax. Musculoskeletal: No acute osseous abnormality. Soft tissues: Normal. Upper abdomen: Limited portions of the upper abdomen are unremarkable. IMPRESSION: No pulmonary embolism. Fibrotic changes of the bilateral lung bases.
--- NOTE | 2025-01-27 14:17 | DVHOP ---
DATE OF SURGERY: 01/26/2025 TECHNIQUES PERFORMED: * Emergency case. * Insertion of a 6-Burkin[place] arterial line from the right femoral artery. * Management of conscious sedation. * Left heart cath. * Left ventriculogram. * [place] selective left and right coronary artery angiography. * Right iliofemoral artery angiography and arteriotomy application of the Mynx device. * Angio-Seal of the right femoral artery. COMPLICATIONS: None. ASSISTANTS: Assisted by our staff here is Jonas Ricci Angela and Ariana. INDICATIONS: As follows: Emergency Room doctor called me. The patient came with severe chest pain. The patient had a Q-wave pattern involving aVF with ST elevation and and ST depression noted on the lateral lead, inferior wall has been noted. Code STEMI was called. We do not have any previous EKG for comparison at this time. DESCRIPTION OF PROCEDURE: The risks and benefits all had been explained and brought over here. The right groin was shaved, was cleaned with soap and Betadine. Lidocaine was given. IV Versed and fentanyl were given. A 6-[place]kin[place] arterial line was placed under fluoroscopic guidance. Left coronary angiography was done with the help of a JL4 catheter and the right coronary angiography was done. With the help of pigtail catheter, a complete left heart cath was done. The left ventriculogram was done in the right anterior oblique view with total of 20 mL of dye. Post LV gram, left ventricular angiography had been performed with the help of pull-through technique. Aortic pressure was also performed. J-wire was passed. The pigtail catheter also has been discontinued. The right iliofemoral artery angiography was done. Arteriotomy, Angio-Seal of the right femoral artery also has been done. The procedure completed. There were no complications. IMPRESSION: * Normal left main. * The left anterior descending artery widely open. * Mild plaque has been noted in the mid and distal region. * Caliber of the left anterior artery is quite smaller. * The diagonal arteries are normal. * The circumflex artery in the mid region has 30% narrowing. Obtuse marginal artery normal. * The right coronary artery is a large luminal artery, widely normal, 30% narrowing. * Ejection fraction of the left ventricle is in the range of 70% plus and is normal. CONCLUSION: * No evidence of any occlusive coronary artery disease. * 30% narrowing of the mid region of the circumflex. * 30% narrowing of the mid region of the right coronary artery. * The right iliofemoral artery angiography had been done. * Arteriotomy application of the Mynx device also has been done. PLAN OF ACTION: Advised for conservative medical treatment. The patient is cardiac angiography. Myriam Rowley MD MP/ARACELI/JOAN/MAGO TID: [id number] RECEIPT: [id number] [facility]ITAL[facility]
--- NOTE | 2025-01-27 14:42 | ECG ---
[facility] Test Date: 2025-01-26 Test Time: 17:53:29 Pat Name: MIKE SANTIAGO Department: [facility] ED Patient ID: [id number] Room: 0281T Gender: F Internet Marketing Strategist: LY : 1935 Requested By: AILYN BALTAZAR Order Number: [id number] Reading MD: Mihir Birmingham Measurements Intervals [place] Rate: 82 P: 55 [place]: 185 QRS: 13 QRSD: 94 T: -53 QT: 344 QTc: 402 Interpretive Statements Sinus rhythm Consider left atrial enlargement Probable LVH with secondary repol abnrm ST elevation, consider lateral injury Electronically Signed On 02-02-2025 19:02:32 PDT by Mihir Birmingham Please click the below link to view image of tracing.
--- NOTE | 2025-01-27 16:59 | DVHPNRES ---
Progress Note Date Seen: Jan 27, 2025 Resident Creating Document: HESHAM GARCIA RESIDENT Medical Necessity Reason Pt with a Central, PICC or Fol: No Subjective Review of Systems Patient seen and examined at the bedside. Overnight events reviewed, no new complaints reported at this time. Status post left heart catheterization, Patient is still unstable further transfer to [place] and stratigrapher went in his hip monitoring for 24 hours. Objective vital signs Vital Sign Date Time Temp Pulse Resp B/P (MAP) Pulse Ox O2 Delivery O2 Flow Rate FiO2 01/27/25 16:47 98.9 72 16 113/57 (75) 99 98.9 01/27/25 08:00 Nasal Cannula* 2 28 Total Intake and Output 01/26/25 01/26/25 01/27/25 15:00 23:00 07:00 Intake Total 0 ml Balance 0 ml medications Current Medications Medications Dose Ordered Sig/Monica Route Start Time Stop Time Status Last Admin Dose Admin Ondansetron HCl 4 mg Q4HP PRN IV 01/26/25 18:30 Cancel Acetaminophen 650 mg Q6HP PRN PO 01/26/25 18:30 Pantoprazole Sodium 40 mg DAILY IV 01/27/25 10:00 01/27/25 10:10 40 MG Metoprolol Succinate 25 mg DAILY PO 01/27/25 10:00 01/27/25 10:11 25 MG Lisinopril 40 mg DAILY PO 01/27/25 10:00 01/27/25 10:10 40 MG Levothyroxine Sodium 50 mcg QAM@0600 PO 01/27/25 06:00 Hydralazine HCl 10 mg Q6HP PRN IV 01/26/25 19:15 Acetaminophen/ Hydrocodone Bitart 1 tab Q4HP PRN PO 01/26/25 19:45 Ondansetron HCl 4 mg Q4HP PRN IV 01/26/25 19:45 Acetaminophen 500 mg Q6HP PRN PO 01/26/25 19:45 UNV Morphine Sulfate 1 mg Q4HP PRN IV 01/26/25 19:45 Nitroglycerin 0.4 mg Q5MINP PRN SL 01/26/25 19:45 Morphine Sulfate 2 mg Q30M PRN IV 01/26/25 19:45 Prednisone 5 mg Q6HR PO 01/27/25 12:00 9/10/25 13:34 5 MG Examination Pt is lying on bed General Appearance: Alert, Oriented X3, Cooperative, Not in acute distress HEENT: Atraumatic, Mucous membranes moist/pink Respiratory: Clear to auscultation, Normal air movement, No added sounds Cardiovascular: Regular rate, Normal S1, Normal S2, No murmurs Abdominal: Active bowel sounds, Soft, no distention, no tenderness Extremities: No edema, Normal pulses, No tenderness/swelling But deformities n the fingers likely from arthritis Skin: No Significant rash, except past surgical scars Neuro: Normal speech, sensorimotor deficits none Psych/Mental Status: Mental status NL, Mood NL Nurse was there as special machine operator during examination laboratory and microbiology Laboratory Tests 01/27/25 01:42 Test 01/27/25 01:42 Range/Units Serum Glucose 92 74-106 mg/dL Labs and/or images reviewed: Labs reviewed by me, Image(s) reviewed by me Problem List/Assessment/Plan Problem List/Assessment/Plan # ACS # Ruled out ST-elevation [place] # Progressive CAD - Telemetry - EKG showed ST-elevation in lateral leads with reciprocal changes - Troponins, pending - Activated code STEMI - Consulted cardiology, left heart catheterization showed 30% narrowing in circumflex, RCA, advised conservative medical management - Chest pain protocol with nitroglycerin, morphine - given loading dose of aspirin 325 mg - baby dose of aspirin and Plavix # HTN: Resumed home medications lisinopril 40 mg, metoprolol succinate ER 25 mg # Hypothyroidism: Resume levothyroxine 50 mcg # Osteoporosis: Patient is on alendronate sodium 70 mg we will resume once patient is stabilized # Rheumatoid arthritis: Patient is on prednisolone 5 mg Patient is unstable for transfer to [place] at this time we will try tomorrow. GI PPX: Protonix VTE ppx: scd s for now Diet: NPO for now, resume cardiac diet after the catheterization Goals of care addressed with the patient's son for more than 27 minutes: Full code status Case discussed with Dr. Mclean ,patient and nurse Plan discussed with: Patient, Son My Orders My Orders Orders - HESHAM GARCIA RESIDENT Procedure Category Date Status Time Drug Screen LAB 01/26/25 Logged 19:02 Urinalysis LAB 01/26/25 Logged 19:02 Pantoprazole PHA 01/27/25 In Process (Protonix) 10:00 Metoprolol Xl PHA 01/27/25 In Process Succinate (Toprol Xl) 10:00 Lisinopril Tablet PHA 01/27/25 In Process (Zestril Tablet) 10:00 Levothyroxine Tablet PHA 01/27/25 In Process (Synthroid Tablet) 06:00 Hydralazine Injection PHA 01/26/25 In Process (Apresoline Inject 19:15 Prednisolone PHA 01/27/25 In Process 12:00 * Head Start Coordinator CONS 01/27/25 Transmitted Consult Pt Request For Service PT 01/27/25 Logged 15:08 Date of Service: Jan 27, 2025 Billing Provider: EVELINE ORTEZ MD Common Visit Codes: 32114-GEOMVADEXX INP/OBS CARE(HIGH) HESHAM GARCIA RESIDENT Jan 27, 2025 16:59 EVELINE ORTEZ MD Feb 07, 2025 17:38
[2025-01-27 22:49] LABS: COVID19 ANTIGEN SOFIA FIA POSITIVE (NEGATIVE)
--- NOTE | 2025-01-27 23:45 | DVHPN2 ---
Progress Note - Dictate Date Seen: Jan 27, 2025 Medical Necessity Reason Pt with a Central, PICC or Fol: No Subjective Patient was seen and evaluated in follow up. Patient underwent left heart cath, [place] selective left and right coronary artery angiography. The patient is advised for conservative medical treatment. Troponin 39. CTA chest is negative for PE. Telemetry reviewed. vital signs Vital Sign Date Time Temp Pulse Resp B/P (MAP) Pulse Ox O2 Delivery O2 Flow Rate FiO2 01/27/25 12:48 98.1 67 16 130/73 (92) 100 98.1 01/27/25 08:00 Nasal Cannula* 2 28 Total Intake and Output 01/26/25 01/26/25 01/27/25 15:00 23:00 07:00 Intake Total 0 ml Balance 0 ml medications Current Medications Medications Dose Ordered Sig/Monica Route Start Time Stop Time Status Last Admin Dose Admin Ondansetron HCl 4 mg Q4HP PRN IV 01/26/25 18:30 Cancel Acetaminophen 650 mg Q6HP PRN PO 01/26/25 18:30 Pantoprazole Sodium 40 mg DAILY IV 01/27/25 10:00 01/27/25 10:10 40 MG Metoprolol Succinate 25 mg DAILY PO 01/27/25 10:00 01/27/25 10:11 25 MG Lisinopril 40 mg DAILY PO 01/27/25 10:00 01/27/25 10:10 40 MG Levothyroxine Sodium 50 mcg QAM@0600 PO 01/27/25 06:00 Hydralazine HCl 10 mg Q6HP PRN IV 01/26/25 19:15 Acetaminophen/ Hydrocodone Bitart 1 tab Q4HP PRN PO 01/26/25 19:45 Ondansetron HCl 4 mg Q4HP PRN IV 01/26/25 19:45 Acetaminophen 500 mg Q6HP PRN PO 01/26/25 19:45 UNV Morphine Sulfate 1 mg Q4HP PRN IV 01/26/25 19:45 Nitroglycerin 0.4 mg Q5MINP PRN SL 01/26/25 19:45 Morphine Sulfate 2 mg Q30M PRN IV 01/26/25 19:45 Prednisone 5 mg Q6HR PO 01/27/25 12:00 objective GENERAL: Alert and oriented x 3. No acute distress. EYES: PERRL, EOMI. Anicteric. HENT: Moist mucous membranes. LUNGS: Clear to auscultation bilaterally. CARDIOVASCULAR: Regular rate and rhythm. ABDOMEN: Soft, non-tender and non-distended. EXTREMITIES: No edema. NEUROLOGIC: No focal neurological deficits. SKIN: Warm, dry. laboratory and microbiology Laboratory Tests 01/27/25 01:42 Test 01/27/25 01:42 Range/Units Serum Glucose 92 74-106 mg/dL Problem List STEMI. ACS. HTN. Hypothyroidism. Osteoporosis. Rheumatoid arthritis. Assessment/Plan Continued all current supportive medical care. Echocardiogram. Morphine and [place] for pain management. Aspirin, Plavix, Metoprolol. IV Hydralazine for SBP > 160. Lisinopril. Nitro SL. GI prophylactics. Additional plan as per the hospital course. A total of 25 minutes was spent reviewing the patient record, examining the patient, making a diagnostic and therapeutic plan, discussing this plan with medical personnel, following up on diagnostic studies and following the patient for clinical stability excluding any and all procedures. At least 50% of this time was spent in direct, [id number] contact. Plan discussed with: Patient TONJA LUIS MD Jan 27, 2025 13:35
[2025-01-28] VITALS (9 sets, daily range): BP systolic 110–133; BP diastolic 49–72; PULSE 63–80; RESP 16–18; TEMP 97.8–98.5; O2SAT 92–100
[2025-01-28] MEDS: IOHEXOL 350 MG/ML 100ML IJ ONE (06:52)
[2025-01-28] MEDS ORDERED: REMDESIVIR PER PHARMACY 0 ML IV SCH (07:00)
[2025-01-28 07:12] LABS: Alanine Aminotransferase 16 U/L (7-40); Alkaline Phosphatase 81 U/L (46-116); Anion Gap 8 (5-15); BUN/Creatinine Ratio 24.7 (10.0-20.0); Blood Urea Nitrogen 18 mg/dL (9-23); Calcium 8.8 mg/dL (8.7-10.4); Carbon Dioxide 26 mmol/L (20-31); Potassium 4.3 mmol/L (3.5-5.1); Sodium 141 mmol/L (136-145)
[2025-01-28 07:13] LABS: Total Protein 5.9 g/dL (5.7-8.2)
[2025-01-28 07:14] LABS: Albumin 3.3 g/dL (3.2-4.8); Bilirubin, Total 0.6 mg/dL (0.2-1.0)
[2025-01-28 07:30] LABS: Chloride 107 mmol/L (98-107); Glucose 163 mg/dL (74-106)
[2025-01-28] MEDS: CLOPIDOGREL BISULFATE 75 MG TAB PO SCH (08:57)
[2025-01-28] MEDS: guaiFENesin-DM 100/10mg/5ml SYR PO PRN (11:35)
[2025-01-28] MEDS ORDERED: NITR0.4S29 SL (12:23)
[2025-01-28] MEDS ORDERED: ASPI-325 PO (12:23)
[2025-01-28] MEDS ORDERED: DEXT1SYP9 PO (12:23)
[2025-01-28] MEDS ORDERED: CLOP75TA70 PO (12:23)
--- NOTE | 2025-01-28 18:51 | DVHDSRES ---
Discharge Summary Date of Admission Resident Creating Document: HESHAM GARCIA RESIDENT Jan 26, 2025 at 18:29 Date of Discharge: Jan 28, 2025 Admitting Diagnosis ACS Labs/Diagnostic Data: Laboratory Results Test 01/28/25 05:54 01/27/25 21:45 01/27/25 01:42 01/26/25 20:00 Sodium Level 141 mmol/L (136-145) Potassium Level 4.3 mmol/L (3.5-5.1) Chloride Level 107 mmol/L (98-107) Carbon Dioxide Level 26 mmol/L (20-31) Anion Gap 8 (5-15) Blood Urea Nitrogen 18 mg/dL (9-23) Creatinine 0.73 mg/dL (0.550-1.02) Glomerular Filtration Rate Calc 79 mL/min (>90) BUN/Creatinine Ratio 24.7 (10.0-20.0) Serum Glucose 163 mg/dL (74-106) Calcium Level 8.8 mg/dL (8.7-10.4) Total Bilirubin 0.6 mg/dL (0.2-1.0) Aspartate Amino Transferase (AST) 21 U/L (13-40) Alanine Aminotransferase (ALT) 16 U/L (7-40) Alkaline Phosphatase 81 U/L (46-116) Total Protein 5.9 g/dL (5.7-8.2) Albumin 3.3 g/dL (3.2-4.8) Influenza Type A Antigen Negative (Negative) Influenza Type B Antigen Negative (Negative) SARS-CoV-2 Antigen (Rapid) Positive (NEGATIVE) White Blood Count 4.7 10^3/uL (4.4-10.8) Red Blood Count 3.35 10^6/uL (4.0-5.20) Hemoglobin 10.5 g/dL (12.2-16.2) Hematocrit 30.5 % (36.0-46.0) Mean Corpuscular Volume 91.0 fL (80.0-100.0) Mean Corpuscular Hemoglobin 31.2 pg (28.0-32.0) Mean Corpuscular Hemoglobin Concent 34.3 g/dL (32.0-36.0) Red Cell Distribution Width 16.2 % (11.8-14.3) Platelet Count 177 10^3/uL (140-450) Mean Platelet Volume 7.2 fL (6.9-10.8) Neutrophils (%) (Auto) 52.7 % (37.0-80.0) Lymphocytes (%) (Auto) 35.0 % (10.0-50.0) Monocytes (%) (Auto) 8.0 % (0.0-12.0) Eosinophils (%) (Auto) 3.8 % (0.0-7.0) Basophils (%) (Auto) 0.5 % (0.0-2.0) Neutrophils # (Auto) 2.5 10 ^3/uL (1.6-8.6) Lymphocytes # (Auto) 1.7 10 ^3/uL (0.4-5.4) Monocytes # (Auto) 0.4 10 ^3/uL (0-1.3) Eosinophils # (Auto) 0.2 10 ^3/uL (0-0.8) Basophils # (Auto) 0 10 ^3/uL (0-0.2) Nucleated Red Blood Cells 0.1 % Troponin I High Sensitivity 39 ng/L (</=34) Free Thyroxine (T4) Calculated 1.68 ng/dL (0.89-1.76) Total Triiodothyronine (TT3) 1.08 ng/mL (0.60-1.81) Magnesium Level 2.0 mg/dL (1.6-2.6) Triglycerides Level 94 mg/dL (< 150) Cholesterol Level 167 mg/dL (< 200) LDL Cholesterol 118 mg/dL (< 100) HDL Cholesterol 38 mg/dL (40-59) Test 01/26/25 18:12 Prothrombin Time 10.4 sec (9.3-11.8) Prothrombin Time INR 0.98 (0.9-1.15) Activated Partial Thromboplast Time 25.2 SEC (24.5-34.5) Hemoglobin A1c 6.3 % A1C (<5.7) Lactic Acid Level 1.6 mmol/L (0.4-2.0) B-Type Natriuretic Peptide 54.95 pg/mL (0-100) Vitamin B12 Level 1958 pg/mL (211-911) Vitamin D 25-Hydroxy 98.3 ng/mL (30.0-100) Thyroid Stimulating Hormone (TSH) 0.22 uIU/mL (0.55-4.78) Other Laboratory Tests 01/28/25 05:54 01/27/25 01:42 Brief Hx & Hospital Course: Zuleyka Mcmahan is a 89 years old Occitan-speaking female with a PMH of HTN, hypothyroidism, rheumatoid arthritis presented to the ED accompanied by son for chest pain which started on the day of admission. History obtained from the son, per him patient has been having recently multiple episodes of syncope and planning to visit finance associate for the cause but today patient has been having mild chest pain substernal and right-sided and no associated features. The pain is more noticeable when lying down and standing up additionally patient's son noticed that the patient's tongue appeared concerning, prompting her to seek medical attention. On my assessment denies shortness of breaths, cough, nausea, vomiting, diaphoresis and other associated symptoms. On arrival to ED EKG showed ST-elevation in lateral leads with reciprocal changes, code STEMI activated and taking her to cardiac cath tech with Dr. Rowley. Angiogram revealed no evidence of any occlusive coronary artery disease and did not require any stent placement. Patient was put on aspirin and Plavix. CT Angiography was done which revealed Fibrotic changes of the bilateral lung bases. Patient tested positive for COVID, but had also tested positive for COVID on 01/19/25, COVID precautions were not followed. On evaluation today, the patient had no complaint of chest pain. The patient was explained about discharge and asked for placement in a SNF. PT evaluation was done recommended sending the patient home with a front wheel walker. Medications and recommendations were explained to the patient and her family and they demonstrated understanding of the same. All questions were answered and all concerns were addressed. PMH: As above PSH: Noncontributory Family history: Noncontributory Social history: Lives with the family. Denies smoking, alcohol and other drug abuse Allergies: No known allergies Home medications: Levothyroxine, faintness, prednisolone, amlodipine, lisinopril, metoprolol, benzonatate, alendronate General Appearance: Alert, Oriented X3, Cooperative, Not in acute distress HEENT: Atraumatic, Mucous membranes moist/pink Respiratory: Clear to auscultation, Normal air movement, No added sounds Cardiovascular: Regular rate, Normal S1, Normal S2, No murmurs Abdominal: Active bowel sounds, Soft, no distention, no tenderness Extremities: No edema, Normal pulses, No tenderness/swelling Skin: No Significant rash, except past surgical scars Neuro: Normal speech, sensorimotor deficits none Psych/Mental Status: Mental status NL, Mood NL Nurse was there as continuity writer during examination Discharge plan Started on aspirin 81 mg daily once Plavix 70 mg daily once for 7 days Resumed all other home medications Follow up with the cardiology Follow up with the primary care Discharging to [facility] facility Operations or Procedures 1.PROCEDURE(s): CXRP - CHEST PORTABLE REASON: cp ORDER NUMBER(s): [id number], ACCESSION NUMBER(s): [id number] FINDINGS: The cardiac silhouette is enlarged. The lungs demonstrate bilateral patchy airspace opacities. The pulmonary vasculature is prominent. Moderate left and small right pleural effusions. Aortic atherosclerotic disease. There is no pneumothorax. 2.PROCEDURE(s): CTACH - CT ANGIO CHEST CONTRAST REASON: CHEST PAIN, NEGATIVE [facility] ORDER NUMBER(s): [id number], ACCESSION NUMBER(s): [id number] IMPRESSION: No pulmonary embolism. Fibrotic changes of the bilateral lung bases. 3.INDICATIONS: As follows: Emergency Room doctor called me. The patient came with severe chest pain. The patient had a Q-wave pattern involving aVF with ST elevation and and ST depression noted on the lateral lead, inferior wall has been noted. Code STEMI was called. We do not have any previous EKG for comparison at this time. DESCRIPTION OF PROCEDURE: The risks and benefits all had been explained and brought over here. The right groin was shaved, was cleaned with soap and Betadine. Lidocaine was given. IV Versed and fentanyl were given. A 6-[place] arterial line was placed under fluoroscopic guidance. Left coronary angiography was done with the help of a JL4 catheter and the right coronary angiography was done. With the help of pigtail catheter, a complete left heart cath was done. The left ventriculogram was done in the right anterior oblique view with total of 20 mL of dye. Post LV gram, left ventricular angiography had been performed with the help of pull-through technique. Aortic pressure was also performed. J-wire was passed. The pigtail catheter also has been discontinued. The right iliofemoral artery angiography was done. Arteriotomy, Angio-Seal of the right femoral artery also has been done. The procedure completed. There were no complications. IMPRESSION: * Normal left main. * The left anterior descending artery widely open. * Mild plaque has been noted in the mid and distal region. * Caliber of the left anterior artery is quite smaller. * The diagonal arteries are normal. * The circumflex artery in the mid region has 30% narrowing. Obtuse marginal artery normal. * The right coronary artery is a large luminal artery, widely normal, 30% narrowing. * Ejection fraction of the left ventricle is in the range of 70% plus and is normal. CONCLUSION: * No evidence of any occlusive coronary artery disease. * 30% narrowing of the mid region of the circumflex. * 30% narrowing of the mid region of the right coronary artery. * The right iliofemoral artery angiography had been done. * Arteriotomy application of the Mynx device also has been done. PLAN OF ACTION: Advised for conservative medical treatment. The patient is cardiac angiography. Condition at Discharge: Fair Final Diagnosis/Problems List chest pain, Unstable angina likely Chest pain, ACS, ruled out STEMI, s/p angiogram Progressive CAD, newly diagnosed COVID-19 infection Hypertension, controlled Hypothyroidism Osteoporosis Rheumatoid arthritis Physical deconditioning Discharge Disposition: Intermediate Facility Discharge Instruct/Medications Diet: Cardiac 2g Na,low cholest Activity: No Restrictions, As Tolerated Follow Up/Referral: follow up with pcp Follow up with Cardiology Medications: Aspirin 81 mg daily one tab Plavix 75 mg for seven days one tab Rest of the medications as per EMR Scheduled Alendronate Sodium (Alendronate Sodium), 1 TAB PO QWEEKLY, (Reported) Amlodipine Besylate (Amlodipine Besylate), 5 MG PO HS, (Reported) Aspirin (Aspirin Low Dose), 81 MG PO DAILY Benzonatate (Benzonatate), 1 CAP PO TID, (Reported) Clopidogrel Bisulfate (Clopidogrel), 75 MG PO DAILY Dabigatran Etexilate Mesylate (Dabigatran Etexilate), 110 MG PO BID, (Reported) Ferrous Sulfate (Ferosul), 325 MG PO BID, (Reported) Levothyroxine Sodium (Levothyroxine Sodium), 50 MCG PO QAM, (Reported) Lisinopril (Lisinopril), 40 MG PO DAILY, (Reported) Methotrexate (Rasuvo), 20 MG SC QWEEKLY, (Reported) Metoprolol Succinate (Metoprolol Succinate Er), 25 MG PO DAILY, (Reported) Prednisone (Prednisone), 4 TAB PO DAILY, (Reported) Rosuvastatin Calcium (Crestor), 10 MG PO HS Scheduled PRN Dextromethorphan-Guaifenesin (Robitussin-Dm), 10 ML PO Q6HPRN PRN Nitroglycerin (Ntrostat Sublingual), 0.4 MG SL TIDPRN PRN Discharge Statement: "Patient was advised to return to the ER or call 911 if any headaches, dizziness, shortness of breath, chest pain, abdominal pain, bleeding, fevers, or worsening of medical condition. Patient was counseled about treatment plan, medications, possible side effects, patientverbalized understanding. All questions were answered to the best of my ability. This discharge took greater then 30 minutes in planning, reviewing documentation, counseling the patient, and discussing with other team members." ASSESSMENT ASSESSMENT Assessment Chest pain, unstable angina, acute coronary syndrome COVID infection Physical deconditioning Date of Service: Jan 28, 2025 Billing Provider: EVELINE ORTEZ MD Common Visit Codes: 79707-MVR/[id number] DISCH DAY >30min SHYANN FRY RESIDENT Jan 28, 2025 18:51 HESHAM GARCIA RESIDENT Jan 29, 2025 07:00 EVELINE ORTEZ MD Jan 30, 2025 08:47
--- NOTE | 2025-01-28 23:25 | DVHPN2 ---
Progress Note - Dictate Date Seen: Jan 28, 2025 Medical Necessity Reason Pt with a Central, PICC or Fol: No Subjective Patient was seen and evaluated in follow up. No overnight events. Patient is c/o hip pain. BS are in the 160's. Pending SNF arrangements. Telemetry reviewed. vital signs Vital Sign Date Time Temp Pulse Resp B/P (MAP) Pulse Ox O2 Delivery O2 Flow Rate FiO2 01/28/25 08:58 130/72 01/28/25 08:58 66 01/28/25 08:35 97.8 16 95 97.8 01/28/25 08:00 Room Air* 0 21 Total Intake and Output 01/27/25 01/27/25 01/28/25 15:00 23:00 07:00 Intake Total 0 ml 0 ml Balance 0 ml 0 ml medications Current Medications Medications Dose Ordered Sig/Monica Route Start Time Stop Time Status Last Admin Dose Admin Ondansetron HCl 4 mg Q4HP PRN IV 01/26/25 18:30 Cancel Acetaminophen 650 mg Q6HP PRN PO 01/26/25 18:30 Pantoprazole Sodium 40 mg DAILY IV 01/27/25 10:00 01/28/25 08:56 40 MG Metoprolol Succinate 25 mg DAILY PO 01/27/25 10:00 01/28/25 08:58 25 MG Lisinopril 40 mg DAILY PO 01/27/25 10:00 01/28/25 08:58 40 MG Levothyroxine Sodium 50 mcg QAM@0600 PO 01/27/25 06:00 01/28/25 06:11 50 MCG Hydralazine HCl 10 mg Q6HP PRN IV 01/26/25 19:15 Acetaminophen/ Hydrocodone Bitart 1 tab Q4HP PRN PO 01/26/25 19:45 Ondansetron HCl 4 mg Q4HP PRN IV 01/26/25 19:45 Acetaminophen 500 mg Q6HP PRN PO 01/26/25 19:45 UNV Morphine Sulfate 1 mg Q4HP PRN IV 01/26/25 19:45 Nitroglycerin 0.4 mg Q5MINP PRN SL 01/26/25 19:45 Morphine Sulfate 2 mg Q30M PRN IV 01/26/25 19:45 Prednisone 5 mg Q6HR PO 01/27/25 12:00 01/28/25 11:35 5 MG Aspirin 81 mg DAILY PO 01/28/25 10:00 01/28/25 08:57 81 MG Clopidogrel Bisulfate 75 mg DAILY PO 01/28/25 10:00 01/28/25 08:57 75 MG Guaifenesin/ Dextromethorphan 10 ml Q4HP PRN PO 01/28/25 10:30 01/28/25 11:35 10 ML objective GENERAL: Alert and oriented x 3. No acute distress. EYES: PERRL, EOMI. Anicteric. HENT: Moist mucous membranes. LUNGS: Clear to auscultation bilaterally. CARDIOVASCULAR: Regular rate and rhythm. ABDOMEN: Soft, non-tender and non-distended. EXTREMITIES: No edema. NEUROLOGIC: No focal neurological deficits. SKIN: Warm, dry. laboratory and microbiology Laboratory Tests 01/28/25 05:54 01/27/25 01:42 Test 01/28/25 05:54 Range/Units Serum Glucose 163 H 74-106 mg/dL Problem List STEMI. ACS. HTN. Hypothyroidism. Osteoporosis. Rheumatoid arthritis. Assessment/Plan Continued all current supportive medical care. Nitro SL. Lisinopril. GI prophylactics. Echocardiogram. Aspirin, Plavix, Metoprolol. IV Hydralazine for SBP > 160. Morphine and [place] for pain management. Additional plan as per the hospital course. A total of 25 minutes was spent reviewing the patient record, examining the patient, making a diagnostic and therapeutic plan, discussing this plan with medical personnel, following up on diagnostic studies and following the patient for clinical stability excluding any and all procedures. At least 50% of this time was spent in direct, [id number] contact. Plan discussed with: Patient TONJA LUIS MD Jan 28, 2025 12:35
[2025-01-29] VITALS (8 sets, daily range): BP systolic 121–152; BP diastolic 50–76; PULSE 52–71; RESP 16–18; TEMP 97.7–98.5; O2SAT 94–97
[2025-01-29] MEDS ORDERED: ROSU10TA16 PO (09:51)
[2025-01-29] MEDS: ONDANSETRON HCL 4 MG/2 ML VIAL IV PRN (14:58)
--- NOTE | 2025-01-29 16:07 | DVHPNRES ---
Progress Note Date Seen: Jan 29, 2025 Resident Creating Document: SHYANN FRY RESIDENT Medical Necessity Reason Pt with a Central, PICC or Fol: No Subjective Review of Systems Zuleyka Mcmahan is a 89 years old Vincentian-speaking female with a PMH of HTN, hypothyroidism, rheumatoid arthritis presented to the ED accompanied by son for chest pain which started on the day of admission. History obtained from the son, per him patient has been having recently multiple episodes of syncope and was planning to visit grocery store clerk for the same, but today patient has been having mild chest pain ,substernal and right-sided and no associated features. The pain is more noticeable when lying down and standing up. Additionally, the patient's son noticed that the patient's tongue appeared concerning as it was a purplish color, prompting her to seek medical attention. On my assessment, patient denies shortness of breath, cough, nausea, vomiting, diaphoresis and other associated symptoms. On arrival to ED EKG showed ST-elevation in lateral leads with reciprocal changes, code STEMI activated and taking her to crime lab technician with Dr. Rowley PMH: As above PSH: Noncontributory Family history: Noncontributory Social history: Lives with the family. Denies smoking, alcohol and other drug abuse Allergies: No known allergies Home medications: Levothyroxine, faintness, prednisolone, amlodipine, lisinopril, metoprolol, benzonatate, alendronate Patient seen and examined at bedside. Patient is alert and oriented to time, place person and responding to all questions. Eyes: No Pain, No Vision change, No Conjunctivae inflammation, No Eyelid inflammation, No Redness ENT: No Ear pain, No Ear discharge, No Nose pain, No Nose discharge, No Nose congestion, No Mouth pain, No Mouth swelling, No Throat pain, No Throat swelling Cardiovascular: No Chest Pain, No Palpitations, No Orthopnea, No Paroxysmal No Dyspnea, No Edema, No Lt Headedness Respiratory: Cough, No Shortness of breath, No SOB with exertion, No Wheezing, No Hemoptysis, No Pleuritic Pain, No Sputum Gastrointestinal: No Nausea, No Vomiting, No Abdominal Pain, No Diarrhea, No Constipation, No Melena, No Hematochezia Genitourinary: No Dysuria, No Frequency, No Incontinence, No Hematuria, No Retention Patient seen and examined at the bedside all the events reviewed, code STEMI activated took her to the crime lab technician. Patient is currently experiencing mild chest pain but no other symptoms. NST monitoring. 01/29- On evaluation today, the patient does not have any complaints. She no longer has chest pain or shortness of breath. We are currently working on finding placement in a SNF facility for the patient. As per the social security specialist's note, she has been accepted at a SNF and we are awaiting response for the family to discharge the patient to the SNF. Objective vital signs Vital Sign Date Time Temp Pulse Resp B/P (MAP) Pulse Ox O2 Delivery O2 Flow Rate FiO2 01/29/25 13:01 97.7 52 16 132/50 (77) 95 97.7 01/29/25 08:00 Room Air* 0 21 Total Intake and Output 01/28/25 01/28/25 01/29/25 15:00 23:00 07:00 Intake Total 437 ml 150 ml 240 ml Balance 437 ml 150 ml 240 ml medications Current Medications Medications Dose Ordered Sig/Monica Route Start Time Stop Time Status Last Admin Dose Admin Ondansetron HCl 4 mg Q4HP PRN IV 01/26/25 18:30 Cancel Acetaminophen 650 mg Q6HP PRN PO 01/26/25 18:30 Pantoprazole Sodium 40 mg DAILY IV 01/27/25 10:00 01/29/25 08:38 40 MG Metoprolol Succinate 25 mg DAILY PO 01/27/25 10:00 01/29/25 08:39 25 MG Lisinopril 40 mg DAILY PO 01/27/25 10:00 01/29/25 08:39 40 MG Levothyroxine Sodium 50 mcg QAM@0600 PO 01/27/25 06:00 01/29/25 05:38 50 MCG Hydralazine HCl 10 mg Q6HP PRN IV 01/26/25 19:15 Acetaminophen/ Hydrocodone Bitart 1 tab Q4HP PRN PO 01/26/25 19:45 Ondansetron HCl 4 mg Q4HP PRN IV 01/26/25 19:45 01/29/25 14:58 4 MG Acetaminophen 500 mg Q6HP PRN PO 01/26/25 19:45 UNV Morphine Sulfate 1 mg Q4HP PRN IV 01/26/25 19:45 Nitroglycerin 0.4 mg Q5MINP PRN SL 01/26/25 19:45 Morphine Sulfate 2 mg Q30M PRN IV 01/26/25 19:45 Prednisone 5 mg Q6HR PO 01/27/25 12:00 01/29/25 12:31 5 MG Aspirin 81 mg DAILY PO 01/28/25 10:00 01/29/25 08:39 81 MG Clopidogrel Bisulfate 75 mg DAILY PO 01/28/25 10:00 01/29/25 08:39 75 MG Guaifenesin/ Dextromethorphan 10 ml Q4HP PRN PO 01/28/25 10:30 01/29/25 12:30 10 ML Examination General Appearance: Alert, Oriented X3, Cooperative, Not in acute distress HEENT: Atraumatic, Mucous membranes moist/pink Respiratory: Clear to auscultation, Normal air movement, No added sounds Cardiovascular: Regular rate, Normal S1, Normal S2, No murmurs Abdominal: Active bowel sounds, Soft, no distention, no tenderness Extremities: No edema, Normal pulses, No tenderness/swelling Skin: No Significant rash, except past surgical scars Neuro: Normal speech, sensorimotor deficits none Psych/Mental Status: Mental status NL, Mood NL Nurse was there as supervisor ditching during examination laboratory and microbiology Laboratory Tests 01/28/25 05:54 01/27/25 01:42 Test 01/28/25 05:54 Range/Units Serum Glucose 163 H 74-106 mg/dL Labs and/or images reviewed: Labs reviewed by me, Image(s) reviewed by me Problem List/Assessment/Plan Problem List/Assessment/Plan ACS Ruled out ST-elevation OK Progressive CAD - Telemetry - EKG showed ST-elevation in lateral leads with reciprocal changes - Troponins,non trending - Activated code STEMI - Consulted cardiology, left heart catheterization showed 30% narrowing in circumflex, RCA, advised conservative medical management - Chest pain protocol with nitroglycerin, morphine - given loading dose of aspirin 325 mg - baby dose of aspirin and Plavix Hypertension,controlled Resumed home medications lisinopril 40 mg, metoprolol succinate ER 25 mg Hypothyroidism -Resume levothyroxine 50 mcg Osteoporosis -Patient is on alendronate sodium 70 mg we will resume once patient is stabilized Rheumatoid arthritis -Patient is on prednisolone 5 mg GI PPX: Protonix VTE ppx: scd s for now Diet: cardiac diet Goals of care addressed with the patient's son for more than 27 minutes: Full code status Case discussed with Dr. Mclean ,patient and nurse Plan discussed with: Patient Date of Service: Jan 29, 2025 Billing Provider: EVELINE ORTEZ MD Common Visit Codes: [id number] INP/OBS CARE(HIGH) SHYANN FRY RESIDENT Jan 29, 2025 16:07 EVELINE ORTEZ MD Feb 07, 2025 18:04
--- NOTE | 2025-01-29 18:18 | DVHPN2 ---
Progress Note - Dictate Date Seen: Jan 29, 2025 Medical Necessity Reason Pt with a Central, PICC or Fol: No Subjective Patient was seen and evaluated in follow up. Patient is c/o hip pain. CM is working on SNF placement. Telemetry reviewed. vital signs Vital Sign Date Time Temp Pulse Resp B/P (MAP) Pulse Ox O2 Delivery O2 Flow Rate FiO2 01/29/25 09:00 97.7 63 18 123/53 (76) 96 97.7 01/29/25 08:00 Room Air* 0 21 Total Intake and Output 01/28/25 01/28/25 01/29/25 15:00 23:00 07:00 Intake Total 437 ml 150 ml 240 ml Balance 437 ml 150 ml 240 ml medications Current Medications Medications Dose Ordered Sig/Monica Route Start Time Stop Time Status Last Admin Dose Admin Ondansetron HCl 4 mg Q4HP PRN IV 01/26/25 18:30 Cancel Acetaminophen 650 mg Q6HP PRN PO 01/26/25 18:30 Pantoprazole Sodium 40 mg DAILY IV 01/27/25 10:00 01/29/25 08:38 40 MG Metoprolol Succinate 25 mg DAILY PO 01/27/25 10:00 01/29/25 08:39 25 MG Lisinopril 40 mg DAILY PO 01/27/25 10:00 01/29/25 08:39 40 MG Levothyroxine Sodium 50 mcg QAM@0600 PO 01/27/25 06:00 01/29/25 05:38 50 MCG Hydralazine HCl 10 mg Q6HP PRN IV 01/26/25 19:15 Acetaminophen/ Hydrocodone Bitart 1 tab Q4HP PRN PO 01/26/25 19:45 Ondansetron HCl 4 mg Q4HP PRN IV 01/26/25 19:45 Acetaminophen 500 mg Q6HP PRN PO 01/26/25 19:45 UNV Morphine Sulfate 1 mg Q4HP PRN IV 01/26/25 19:45 Nitroglycerin 0.4 mg Q5MINP PRN SL 01/26/25 19:45 Morphine Sulfate 2 mg Q30M PRN IV 01/26/25 19:45 Prednisone 5 mg Q6HR PO 01/27/25 12:00 01/29/25 12:31 5 MG Aspirin 81 mg DAILY PO 01/28/25 10:00 01/29/25 08:39 81 MG Clopidogrel Bisulfate 75 mg DAILY PO 01/28/25 10:00 01/29/25 08:39 75 MG Guaifenesin/ Dextromethorphan 10 ml Q4HP PRN PO 01/28/25 10:30 01/29/25 12:30 10 ML objective GENERAL: Alert and oriented x 3. No acute distress. EYES: PERRL, EOMI. Anicteric. HENT: Moist mucous membranes. LUNGS: Clear to auscultation bilaterally. CARDIOVASCULAR: Regular rate and rhythm. ABDOMEN: Soft, non-tender and non-distended. EXTREMITIES: No edema. NEUROLOGIC: No focal neurological deficits. SKIN: Warm, dry. laboratory and microbiology Laboratory Tests 01/28/25 05:54 01/27/25 01:42 Test 01/28/25 05:54 Range/Units Serum Glucose 163 H 74-106 mg/dL Problem List STEMI. ACS. HTN. Hypothyroidism. Osteoporosis. Rheumatoid arthritis. Assessment/Plan Continued all current supportive medical care. Nitro SL. Lisinopril. GI prophylactics. Echocardiogram. Aspirin, Plavix, Metoprolol. IV Hydralazine for SBP > 160. Morphine and [place] for pain management. Additional plan as per the hospital course. A total of 25 minutes was spent reviewing the patient record, examining the patient, making a diagnostic and therapeutic plan, discussing this plan with medical personnel, following up on diagnostic studies and following the patient for clinical stability excluding any and all procedures. At least 50% of this time was spent in direct, [id number] contact. Plan discussed with: Patient TONJA LUIS MD Jan 29, 2025 12:34
[2025-01-29 22:30] LABS: COVID19 ANTIGEN SOFIA FIA NEGATIVE (NEGATIVE)
[2025-01-30 01:00] VITALS: BP 131/72; PULSE 62; RESP 18; TEMP 98.6; O2SAT 96
[2025-01-30 05:00] VITALS: BP 133/63; PULSE 57; RESP 18; TEMP 97.8; O2SAT 96
[2025-01-30 08:00] VITALS: PULSE 61; PULSE 69; RESP 18; O2SAT 96
[2025-01-30 08:06] VITALS: BP 155/71; PULSE 61; RESP 18; TEMP 97.5; O2SAT 96
--- NOTE | 2025-01-30 09:05 | DVHPN2 ---
Subjective Zuleyka Mcmahan is a 89 years old Occitan-speaking female with a PMH of HTN, hypothyroidism, rheumatoid arthritis presented to the ED accompanied by son for chest pain which started on the day of admission. History obtained from the son, per him patient has been having recently multiple episodes of syncope and was planning to visit japanese interpreter for the same, but today patient has been having mild chest pain ,substernal and right-sided and no associated features. The pain is more noticeable when lying down and standing up. Additionally, the patient's son noticed that the patient's tongue appeared concerning as it was a purplish color, prompting her to seek medical attention. On my assessment, patient denies shortness of breath, cough, nausea, vomiting, diaphoresis and other associated symptoms. On arrival to ED EKG showed ST-elevation in lateral leads with reciprocal changes, code STEMI activated and taking her to microbiological laboratory technician with Dr. Rowley PMH: As above PSH: Noncontributory Family history: Noncontributory Social history: Lives with the family. Denies smoking, alcohol and other drug abuse Allergies: No known allergies Home medications: Levothyroxine, faintness, prednisolone, amlodipine, lisinopril, metoprolol, benzonatate, alendronate Patient seen and examined at bedside. Patient is alert and oriented to time, place person and responding to all questions. Reviewed: H&P Changes from previous H/P or p: No Changes General: Per HPI Objective Vitals Vital Signs Date Time Temp Pulse Resp B/P (MAP) Pulse Ox O2 Delivery O2 Flow Rate FiO2 01/30/25 08:54 155/71 01/30/25 08:06 97.5 61 18 96 97.5 01/29/25 20:00 Room Air* 0 21 Intake/Output Intake and Output 01/30/25 07:00 Intake Total 1000 ml Balance 1000 ml Intake Oral 1000 ml # Voids 7 Exam General Appearance: Alert, Oriented X3, Cooperative, Not in acute distress HEENT: Atraumatic, Mucous membranes moist/pink Respiratory: Clear to auscultation, Normal air movement, No added sounds Cardiovascular: Regular rate, Normal S1, Normal S2, No murmurs Abdominal: Active bowel sounds, Soft, no distention, no tenderness Extremities: No edema, Normal pulses, No tenderness/swelling Skin: No Significant rash, except past surgical scars Neuro: Normal speech, sensorimotor deficits none Psych/Mental Status: Mental status NL, Mood NL Medications Current Medications Medications Dose Ordered Sig/Monica Route Start Time Stop Time Status Last Admin Dose Admin Ondansetron HCl 4 mg Q4HP PRN IV 01/26/25 18:30 Cancel Acetaminophen 650 mg Q6HP PRN PO 01/26/25 18:30 Pantoprazole Sodium 40 mg DAILY IV 01/27/25 10:00 01/30/25 08:52 40 MG Metoprolol Succinate 25 mg DAILY PO 01/27/25 10:00 01/30/25 08:53 25 MG Lisinopril 40 mg DAILY PO 01/27/25 10:00 01/30/25 08:54 40 MG Levothyroxine Sodium 50 mcg QAM@0600 PO 01/27/25 06:00 01/30/25 06:04 50 MCG Hydralazine HCl 10 mg Q6HP PRN IV 01/26/25 19:15 Acetaminophen/ Hydrocodone Bitart 1 tab Q4HP PRN PO 01/26/25 19:45 Ondansetron HCl 4 mg Q4HP PRN IV 01/26/25 19:45 01/29/25 14:58 4 MG Acetaminophen 500 mg Q6HP PRN PO 01/26/25 19:45 UNV Morphine Sulfate 1 mg Q4HP PRN IV 01/26/25 19:45 Nitroglycerin 0.4 mg Q5MINP PRN SL 01/26/25 19:45 Morphine Sulfate 2 mg Q30M PRN IV 01/26/25 19:45 Prednisone 5 mg Q6HR PO 01/27/25 12:00 01/30/25 06:05 5 MG Aspirin 81 mg DAILY PO 01/28/25 10:00 01/30/25 08:53 81 MG Clopidogrel Bisulfate 75 mg DAILY PO 01/28/25 10:00 01/30/25 08:53 75 MG Guaifenesin/ Dextromethorphan 10 ml Q4HP PRN PO 01/28/25 10:30 01/29/25 12:30 10 ML Laboratory Results Laboratory Tests 01/27/25 01:42 01/28/25 05:54 Labs and/or images reviewed: Labs reviewed by me, Image(s) reviewed by me Assessment/Plan Assessment/Plan 01/29- On evaluation today, the patient does not have any complaints. She no longer has chest pain or shortness of breath. We are currently working on finding placement in a SNF facility for the patient. As per the social service coordinator's note, she has been accepted at a SNF and we are awaiting response for the family to discharge the patient to the SNF. 01/30 - waiting for snf placement. Patient has been constipated for past few days, we will start lactulose and docusate. Patient is willing to get enema if needed. ACS Ruled out ST-elevation PA Progressive CAD - Telemetry - EKG showed ST-elevation in lateral leads with reciprocal changes - Troponins,non trending - Activated code STEMI - Consulted cardiology, left heart catheterization showed 30% narrowing in circumflex, RCA, advised conservative medical management - Chest pain protocol with nitroglycerin, morphine - given loading dose of aspirin 325 mg - baby dose of aspirin and Plavix Hypertension,controlled Resumed home medications lisinopril 40 mg, metoprolol succinate ER 25 mg Hypothyroidism -Resume levothyroxine 50 mcg Osteoporosis -Patient is on alendronate sodium 70 mg we will resume once patient is stabilized Rheumatoid arthritis -Patient is on prednisolone 5 mg GI PPX: Protonix VTE ppx: scd s for now Diet: cardiac diet Plan discussed with: Patient Date of Service: Jan 30, 2025 Billing Provider: EVELINE ORTEZ MD Common Visit Codes: 54026-[id number] INP/OBS CARE(MOD) EVELINE ORTEZ MD Jan 30, 2025 09:05
[2025-01-30] MEDS ORDERED: LACTULOSE 20Gm/30ML SOLN PO PRN (10:15)
[2025-01-30] MEDS ORDERED: DOCUSATE SOD 100 MG CAP PO PRN ×2 (10:15→11:00)
[2025-01-30 12:31] VITALS: BP 155/78; PULSE 63; RESP 16; TEMP 97.5; O2SAT 95
--- NOTE | 2025-01-30 19:22 | DVHPN2 ---
Progress Note - Dictate Date Seen: Jan 30, 2025 Medical Necessity Reason Pt with a Central, PICC or Fol: No Subjective Patient was seen and evaluated in follow up. Patient has no new complaints at this time. Patient denies any cardiac symptoms. Patient is cardiac stable for discharge. Telemetry reviewed. vital signs Vital Sign Date Time Temp Pulse Resp B/P (MAP) Pulse Ox O2 Delivery O2 Flow Rate FiO2 01/30/25 08:54 155/71 01/30/25 08:06 97.5 61 18 96 97.5 01/30/25 08:00 Room Air* 0 21 Total Intake and Output 01/29/25 01/29/25 01/30/25 15:00 23:00 07:00 Intake Total 700 ml 300 ml Balance 700 ml 300 ml medications Current Medications Medications Dose Ordered Sig/Monica Route Start Time Stop Time Status Last Admin Dose Admin Ondansetron HCl 4 mg Q4HP PRN IV 01/26/25 18:30 Cancel Acetaminophen 650 mg Q6HP PRN PO 01/26/25 18:30 Pantoprazole Sodium 40 mg DAILY IV 01/27/25 10:00 01/30/25 08:52 40 MG Metoprolol Succinate 25 mg DAILY PO 01/27/25 10:00 01/30/25 08:53 25 MG Lisinopril 40 mg DAILY PO 01/27/25 10:00 01/30/25 08:54 40 MG Levothyroxine Sodium 50 mcg QAM@0600 PO 01/27/25 06:00 01/30/25 06:04 50 MCG Hydralazine HCl 10 mg Q6HP PRN IV 01/26/25 19:15 Acetaminophen/ Hydrocodone Bitart 1 tab Q4HP PRN PO 01/26/25 19:45 Ondansetron HCl 4 mg Q4HP PRN IV 01/26/25 19:45 01/29/25 14:58 4 MG Acetaminophen 500 mg Q6HP PRN PO 01/26/25 19:45 UNV Morphine Sulfate 1 mg Q4HP PRN IV 01/26/25 19:45 Nitroglycerin 0.4 mg Q5MINP PRN SL 01/26/25 19:45 Morphine Sulfate 2 mg Q30M PRN IV 01/26/25 19:45 Prednisone 5 mg Q6HR PO 01/27/25 12:00 01/30/25 06:05 5 MG Aspirin 81 mg DAILY PO 01/28/25 10:00 01/30/25 08:53 81 MG Clopidogrel Bisulfate 75 mg DAILY PO 01/28/25 10:00 01/30/25 08:53 75 MG Guaifenesin/ Dextromethorphan 10 ml Q4HP PRN PO 01/28/25 10:30 01/29/25 12:30 10 ML Lactulose 10 ml BID PRN PO 01/30/25 10:15 Docusate Sodium 100 mg BID PRN PO 01/30/25 11:00 objective GENERAL: Alert and oriented x 3. No acute distress. EYES: PERRL, EOMI. Anicteric. HENT: Moist mucous membranes. LUNGS: Clear to auscultation bilaterally. CARDIOVASCULAR: Regular rate and rhythm. ABDOMEN: Soft, non-tender and non-distended. EXTREMITIES: No edema. NEUROLOGIC: No focal neurological deficits. SKIN: Warm, dry. laboratory and microbiology Laboratory Tests 01/28/25 05:54 01/27/25 01:42 Test 01/28/25 05:54 Range/Units Serum Glucose 163 H 74-106 mg/dL Problem List STEMI. ACS. HTN. Hypothyroidism. Osteoporosis. Rheumatoid arthritis. Assessment/Plan Continued all current supportive medical care. Nitro SL. Lisinopril. GI prophylactics. Echocardiogram. Aspirin, Plavix, Metoprolol. IV Hydralazine for SBP > 160. Morphine and [place] for pain management. Additional plan as per the hospital course. A total of 25 minutes was spent reviewing the patient record, examining the patient, making a diagnostic and therapeutic plan, discussing this plan with medical personnel, following up on diagnostic studies and following the patient for clinical stability excluding any and all procedures. At least 50% of this time was spent in direct, [id number] contact. Dietary Evaluation Review Comments: 1) Add 60g CCHO restriction to cardiac diet 2) Encourage optimal PO intake 3) Consider stool softeners/laxative PRN 3) Follow-up with cardiology and endocrinology 4) Continue to monitor I&O, labs, and skin integrity Expected Outcomes/Goals: 1) appetite and labs to improve 2) GI symptoms to resolve 3) f/u in 3-5 days Plan discussed with: Patient TONJA LUIS MD Jan 30, 2025 11:50
--- NOTE | 2025-02-03 08:35 | DVHSR ---
APPROVED REPORT EXAM: Two-dimensional and M-mode echocardiogram with Doppler, color Doppler and Bubble Study. Blood Pressure: 118/55 mmHg INDICATION Chest Pain RISK FACTORS Height: 5'2", Weight: 143 DIMENSIONS LVDd3.8 (3.8-5.7cm)LA (2D)3.8 (1.9-4.0cm)Aortic Root3.3 (2.0-3.7cm) LVDs1.8 (2.5-4.0cm)LA (MM) (1.9-4.0cm)Aortic Cusp Exc1.4 (1.5-2.0cm) EF (%) 80.0 (55-70%)Rt. Atrium4.5 (1.9-4.0cm)Asc. Aorta3.1 cm IVSd1.0 (0.7-1.1cm)RV (D) (1.8-2.4cm) PWd0.8 (0.7-1.1cm) Mitral Valve MitralMitral Stenosis E wave0.55m/sMV Mean GR.mmHg A wave0.84m/sMV Peak GR.mmHg E/A ratio0.72D MVAcm2 DECEL [id number] 1/2 Timems Aortic Valve Aortic ValveAortic Stenosis V11.26m/Marino Mean GR.5mmHg V21.40m/Marino Peak GR.8mmHg LVOT Diameter2.0 (1.8-2.4cm)Doppler AVA2.83cm2 Other Information Quality : Technically LimitedRhythm : Technically limited study due to body habitus. Conclusion MODERATE DEGREE LVH AND MODERATE DEGREE LV DIASTOLIC DYSFUNCTION LV EF IS 65% AND IS NORMAL MODERATELY DILATED RV AND RA DUE TO CHRONIC OR ACUTE RV STRAIN PATTERN POSTERIOR MV CALCIFIED AORTIC SCLEROSIS NORMAL TV AND PV NO EFFUSION RVSP IS NOT AVAILABLE
== END 2025-01-30 15:30 | DRG 286 ==
LOC: ER 17:52 → OVERFLOW 18:29 → TELE-WESTW 20:50
PROVIDERS: ADMIT Student in an Organized Health Care Education/Training Program; ATTEND Student in an Organized Health Care Education/Training Program
PROC: 4A023N7 Measurement of Cardiac Sampling and Pressure, Left Heart, Percutaneous Approach (ICD-10-PCS; principal; 2025-01-26)
PROC: B211YZZ Fluoroscopy of Multiple Coronary Arteries using Other Contrast (ICD-10-PCS; 2025-01-26)
PROC: B41FYZZ Fluoroscopy of Right Lower Extremity Arteries using Other Contrast (ICD-10-PCS; 2025-01-26)
PROC: B215YZZ Fluoroscopy of Left Heart using Other Contrast (ICD-10-PCS; 2025-01-26)
PROC: 04HY32Z Insertion of Monitoring Device into Lower Artery, Percutaneous Approach (ICD-10-PCS; 2025-01-26)
DX: I25.110 Atherosclerotic heart disease of native coronary artery with unstable angina pectoris (principal); U07.1 COVID-19; E03.9 Hypothyroidism, unspecified; I10 Essential (primary) hypertension; M06.9 Rheumatoid arthritis, unspecified; M81.0 Age-related osteoporosis without current pathological fracture; I48.91 Unspecified atrial fibrillation; K59.00 Constipation, unspecified; Z79.899 Other long term (current) drug therapy; Z79.01 Long term (current) use of anticoagulants
CPT/HCPCS: 36415; 71045; 71275; 75710; 80053; 80061; 82306; 82607; 83036; 83605; 83735; 83880; 84439; 84443; 84480; 84484; 85025; 85610; 85730; 86850; 86900; 86901; 87426; 87804; 93005; 93306; 93458; 96374; 97110; 97116; 97163; 97530; 99152; 99291; G0378; J2250; J2405; J2470; J7510; Q9967